=== PATIENT | female | born 1990 | race Caucasian/White ===

== ENCOUNTER 2020-03-03 07:26 | Outpatient (REF) | payer MEDICAID, SELFPAY ==
[2020-03-03 09:15] LABS: Alanine Aminotransferase 10 U/L (0-31); Albumin Level 4.5 g/dL (3.5-5.0); Alkaline Phosphatase 78 U/L (39-117); Anion Gap 15 (12-20); Aspartate Amino Transferase 12 U/L (5-31); Bilirubin Direct 0.3 mg/dL (0.0-0.5); Bilirubin Total 0.9 mg/dL (0.0-1.0); Blood Urea Nitrogen 11 mg/dL (9-16); Calcium 9.5 mg/dL (8.4-10.2); Carbon Dioxide 26 mmol/L (22-29); Chloride 107 mmol/L (96-108); Estimated Glomerular Filt Rate > 60; Glucose Random 87 mg/dL (60-115); Potassium 4.4 mmol/l (3.3-5.1); Sodium 144 mmol/L (135-145); Total Protein 7.7 g/dL (6.5-8.0)
[2020-03-03 09:34] LABS: Thyroid Stimulating Hormone 1.51 mIU/mL (0.32-4.0)
[2020-03-03 09:41] LABS: TSH reflex Free T4 1.49 mIU/mL (0.32-4.0)
[2020-03-03 09:53] LABS: Folate 11.7 ng/mL (> or = 4.0); Vitamin B12 676 pg/mL (200-900)
[2020-03-03 10:26] LABS: Acetone, serum QL Negative (Negative)
[2020-03-08 03:07] LABS: Beta-Hydroxybutyrate 0.45 mmol/L
== END 2020-03-03 07:27 | disposition home or self-care (01) ==
LOC: HO.LAB 07:26
PROVIDERS: PCP Internal Medicine; Visit Provider General Practice
DX: T52.4X1A Toxic effect of ketones, accidental (unintentional), initial encounter (principal)
CPT/HCPCS: 80048; 80076; 82009; 82010; 82550; 82607; 82746; 84443

== ENCOUNTER 2020-06-11 17:24 | Outpatient (REF) | payer MEDICAID, SELFPAY | END 2020-06-11 17:25 | disposition home or self-care (01) | LOC: HO.LAB 17:24 | PROVIDERS: PCP Internal Medicine; Visit Provider Internal Medicine | DX: Z20.822 Contact with and (suspected) exposure to COVID-19 (principal) | CPT/HCPCS: 36415; C9803; U0003 ==

== ENCOUNTER 2020-07-08 14:55 | Outpatient (REF) | payer MEDICAID, SELFPAY ==
--- NOTE | ~2020-07-08 | US_ITS ---
EXAMINATION: US PELVIS COMPLETE US PELVIS ENDOVAGINAL CLINICAL INFORMATION: Pelvic pain. Dysmenorrhea COMPARISON: None. TECHNIQUE: Transabdominal and transvaginal images of the pelvis were obtained. FINDINGS: UTERUS: Anteverted. Normal size and contour, measuring 10.0 x 3.9 x 5.1 cm (cervix to fundus x AP x transverse). Uniform, homogeneous endometrium measures 0.4 cm in width. Incidentally noted nabothian cysts in the cervix. Submaximal contribution RIGHT OVARY: Normal size and echogenicity measuring 3.2 x 2.5 x 1.9 cm. 8 mL volume. LEFT OVARY: Normal size and echogenicity measuring 2.8 x 1.8 x 2.3 cm. 6 mL volume. FREE FLUID: No pelvic free fluid. US/US pelvic complete IMPRESSION: Normal pelvic ultrasound. Thin endometrial stripe.
--- NOTE | ~2020-07-08 | US_ITS ---
EXAMINATION: US PELVIS COMPLETE US PELVIS ENDOVAGINAL CLINICAL INFORMATION: Pelvic pain. Dysmenorrhea COMPARISON: None. TECHNIQUE: Transabdominal and transvaginal images of the pelvis were obtained. FINDINGS: UTERUS: Anteverted. Normal size and contour, measuring 10.0 x 3.9 x 5.1 cm (cervix to fundus x AP x transverse). Uniform, homogeneous endometrium measures 0.4 cm in width. Incidentally noted nabothian cysts in the cervix. Submaximal contribution RIGHT OVARY: Normal size and echogenicity measuring 3.2 x 2.5 x 1.9 cm. 8 mL volume. LEFT OVARY: Normal size and echogenicity measuring 2.8 x 1.8 x 2.3 cm. 6 mL volume. FREE FLUID: No pelvic free fluid. US/US transvaginal IMPRESSION: Normal pelvic ultrasound. Thin endometrial stripe.
== END 2020-07-08 14:56 | disposition home or self-care (01) ==
LOC: HO.US 14:55
PROVIDERS: PCP Internal Medicine; Visit Provider Internal Medicine
DX: R10.2 Pelvic and perineal pain (principal); N94.6 Dysmenorrhea, unspecified
CPT/HCPCS: 76830; 76856

== ENCOUNTER 2020-07-09 16:12 | Outpatient (REF) | payer MEDICAID, SELFPAY ==
[2020-07-09 17:11] LABS: Glucose Urine UA NEG (NEG); Leukocyte Esterase Urine NEG (NEG); Nitrite Urine NEG (NEG); Specific Gravity - Urine 1.025 (1.005-1.025); Urine Blood NEG (NEG); Urine Ketones NEG (NEG); Urine Protein NEG (NEG-TRACE)
[2020-07-09 17:13] LABS: Appearance Urine CLEAR; Color Urine YELLOW
== END 2020-07-09 16:13 | disposition home or self-care (01) ==
LOC: HO.LAB 16:12
PROVIDERS: PCP Internal Medicine; Visit Provider Internal Medicine
DX: N94.6 Dysmenorrhea, unspecified (principal)
CPT/HCPCS: 81003

== ENCOUNTER 2020-07-11 10:58 | Outpatient (REF) | payer MEDICAID, SELFPAY ==
[2020-07-11 08:35] LABS: MANUAL DIFF FLAG NO
[2020-07-11 08:46] LABS: Basophils Percent Auto 0.5 % (0-2); Eosinophils Absolute Auto 0.2 X10*3/uL (0.0-0.4); Eosinophils Percent Auto 3.6 % (0-4); Hematocrit 41.8 % (37-47); Lymphocytes Absolute Auto 1.6 X10*3/uL (1.2-4.9); Lymphocytes Percent Auto 35.1 % (20-40); Mean Corpuscular HGB Conc 33.5 g/dl (31.0-35.0); Mean Corpuscular Hemoglobin 29.7 pg (27.0-33.0); Mean Corpuscular Volume 88.6 fL (80-98); Mean Platelet Volume 9.1 fL (9.4-12.3); Monocytes Absolute Auto 0.3 X10*3/uL (0.1-1.2); Monocytes Percent Auto 6.5 % (2-11); Neutrophils Absolute Auto 2.4 X10*3/uL (2.0-8.3); Neutrophils Percent Auto 54.3 % (45-73); Platelet Count 315 X10*3/uL (160-400); Red Blood Count 4.72 X10*6/uL (4.20-5.50); Red Cell Distribution Width 11.5 % (11.0-16.0); White Blood Count 4.4 X10*3/uL (4.8-10.8)
[2020-07-11 09:10] LABS: Anion Gap 14 (12-20); Blood Urea Nitrogen 16 mg/dL (9-16); Calcium 9.5 mg/dL (8.4-10.2); Carbon Dioxide 28 mmol/L (22-29); Chloride 103 mmol/L (96-108); Cholesterol 212 mg/dL; Estimated Glomerular Filt Rate > 60; Glucose Fasting 95 mg/dL (60-99); HDL Cholesterol 71 mg/dL; LDL Cholesterol Calculated 128 mg/dl; Potassium 4.3 mmol/L (3.3-5.1); Sodium 141 mmol/L (135-145); Triglycerides 68 mg/dL
[2020-07-11 09:34] LABS: HCG Quantitative < 2 mIU/mL
[2020-07-13 20:16] LABS: C. trachomatis RNA TMA NOT DETECTED (NOT DETECTED); N. gonorrhoeae RNA TMA NOT DETECTED (NOT DETECTED)
== END 2020-07-11 10:59 | disposition home or self-care (01) ==
LOC: HO.LAB 10:58
PROVIDERS: PCP Internal Medicine; Visit Provider Internal Medicine
DX: N94.6 Dysmenorrhea, unspecified (principal)
CPT/HCPCS: 36415; 80048; 80061; 84443; 84702; 85025; 87491; 87591

== ENCOUNTER 2020-09-10 09:07 | Outpatient (REF) | payer MEDICAID, SELFPAY ==
[2020-09-10 10:19] LABS: COVID-19 Test Negative (Negative); IDNOW Serial# 55D5AD1C
== END 2020-09-10 09:08 | disposition home or self-care (01) ==
LOC: HO.LAB 09:07
PROVIDERS: Visit Provider Internal Medicine
DX: Z20.822 Contact with and (suspected) exposure to COVID-19 (principal)
CPT/HCPCS: 36415; 87635; C9803

== ENCOUNTER 2020-11-25 07:28 | Outpatient (REF) | payer MEDICAID, SELFPAY | END 2020-11-25 07:29 | disposition home or self-care (01) | LOC: HO.LAB 07:28 | PROVIDERS: PCP Internal Medicine; Visit Provider Internal Medicine | DX: Z20.822 Contact with and (suspected) exposure to COVID-19 (principal) | CPT/HCPCS: C9803; U0003; U0005 ==

== ENCOUNTER 2021-08-23 16:53 | Outpatient (REF) | payer MEDICAID, SELFPAY ==
--- NOTE | ~2021-08-23 | XR_ITS ---
EXAMINATION: XR KNEE, RIGHT CLINICAL INFORMATION: Knee pain COMPARISON: None TECHNIQUE: Two views of the right knee. FINDINGS: Bones and soft tissues are normal. No fracture. Small suprapatellar joint fluid.. Alignment is anatomic. Joint spaces are well maintained. No abnormal soft tissue calcification. XR/XR knee RT 2V IMPRESSION: No acute fracture
== END 2021-08-23 16:54 | disposition home or self-care (01) ==
LOC: HO.XRAY 16:53
PROVIDERS: Absent Provider Internal Medicine; PCP Internal Medicine; Visit Provider Internal Medicine Geriatric Medicine
DX: M25.561 Pain in right knee (principal)
CPT/HCPCS: 73560

== ENCOUNTER 2021-08-28 15:34 | Emergency (ER) | payer MEDICAID, SELFPAY ==
[2021-08-28 16:36] VITALS: BP 127/69; PULSE 82; RESP 18; TEMP 36.3; O2SAT 100; BMI 37.2
--- NOTE | 2021-08-28 17:03 | ED_ITS ---
HPI - Extremity Problem General Chief complaint: Extremity Problem Stated complaint: ankel pain Time Seen by Provider: 08/28/21 16:54 Source: patient Mode of arrival: ambulatory History of Present Illness HPI Narrative: 31-year-old female with a past medical history of asthma presenting to the ED complaining of right knee pain x 8 days. Admits was evaluated at [facility] on Monday, had x-rays that were unremarkable given Celecoxib without relief. States this morning when was getting out of the shower and drying herself off felt acute worsening pain to right knee. denies injury, trauma, fall, twisting, weakness. Reports difficulty/inability to ambulate secondary to pain and mild paresthesias MD Complaint: extremity pain and joint pain Onset (ago): week(s) Pain Consistency: constant Related Data Previous Rx's Medication Instructions Recorded acetaminophen 500 mg tablet 500 mg PO Q6H PRN #20 tab 08/28/21 (Tylenol Extra Strength) diclofenac sodium 3 % topical gel 1 appl TOPICAL BID PRN #100 g 08/28/21 Allergies Allergy/AdvReac Type Severity Reaction Status Date / Time lactose Allergy Diarrhea Verified 08/28/21 16:40 Review of Systems Review of Systems: Constitutional: No Fever, No Chills ENT/Mouth: No Ear Pain, No Nasal Congestion, No sore throat, No Rhinorrhea, No Swallowing Difficulty Cardiovascular: No Chest Pain, No SOB Respiratory: No Cough, No Sputum, Gastrointestinal: No Nausea, No Vomiting, No Diarrhea, No Constipation, No Abdominal pain Genitourinary:, No Dysuria, No Urinary Frequency, No Hematuria, No Urinary Incontinence, No Flank Pain Musculoskeletal: +joint pain, No Myalgias, No Joint Swelling Skin: No Skin Lesions, No rash Neuro: No Weakness, No Numbness, + Paresthesias Yes all other systems are reviewed and are negative [facility] Past Medical History Attestation statement: The following information was validated with the patient. Medical History Asthma Social History Social History Advance Directives: No Advance Directives Information Provided: No Physical Exam Vital Signs: Vital Signs: Last Vital Signs Temp 97.4 F 08/28/21 16:36 Pulse 82 08/28/21 16:36 Resp 18 08/28/21 16:36 BP 127/69 08/28/21 16:36 Pulse Ox 100 08/28/21 16:36 BMI result Body Mass Index 37.2 Const: General: cooperative, healthy appearing, no acute distress, well developed, alert and awake Orientation/consciousness: patient oriented x3 Limitations: no limitations HEENT: Head: Yes normal to inspection and Yes atraumatic Ears: hearing grossly normal bilaterally General nose exam: Normal external nose present Face and sinus: Yes normal facial exam Eyes: General: appearance normal, both eyes and all related structures EOM: EOMs intact bilaterally Neck: Neck: Yes normal visual inspection and Yes no meningeal signs Resp: Effort & Inspection: normal respiratory effort and no respiratory distress Auscultation: clear to auscultation bilaterally Cardio: Rate: regular rate Heart sounds: S1 normal heart sound present and S2 normal heart sound present Peripheral pulses: dorsalis pedis present Skin: Rashes: no rashes Wounds: no wounds Neuro: General: patient oriented x3, tone normal and no meningeal signs Gait exam (Neuro): Normal gait present Extrem: Other: Right knee without appreciable deformity. Tender to palpation greater to medial inferior aspect with limited flexion secondary to pain. Neurovascular intact distally. Hip/ankle/foot and toes nontender. No appreciable laxity General: Yes normal to inspection Course Course Course Narrative: Knee x-rays from 08/23 without fracture, small suprapatellar joint effusion >> no need for repeat x-rays at this time. Missael wrap applied for comfort and stability. Will refer patient to orthopedics MDM - Extremity (Nontraumatic) MDM Narrative Medical decision making narrative: 31-year-old female with a past medical history of asthma presenting to the ED complaining of right knee pain x 8 days. On exam vital signs stable, NAD/nontoxic, physical exam as above. X-rays reviewed from 08/23. No need for repeat x-rays at this time. Likely meniscal vs tendon or ligamental injury. Concern for fracture Plan: Symptomatic treatment Medical Records Attestation: I reviewed the patient's medical records. Lab Data Attestation: I reviewed the patient's lab results. Discharge Plan Discharge Clinical Impression: Acute knee pain Qualifiers: Laterality: right Qualified Code(s): M25.561 - Pain in right knee Patient Disposition: Home, Self-Care Instructions: Knee Pain (ED), Arthralgia (ED) Additional Instructions: Ice and elevate her knee. Wear Missael wrap at home for comfort and stability Continue taking previously prescribed anti-inflammatory medication. In addition diclofenac as a topical anti-inflammatory cream, apply to her knee. you should also take Tylenol. Please follow-up with Orthopedics, call next week to make an appointment Hielo y eleva patel rodilla. Use la envoltura Missael en casa para mayor comodidad y estabilidad. Contin?e tomando la medicaci?n antiinflamatoria prescrita previamente. Adem?s de diclofenaco mercy crema antiinflamatoria t?pica, apl?quelo en la rodilla. tambi?n debe raven Tylenol. Km un seguimiento con ortopedia, llame la pr?xima semana para hacer lester dayday Prescriptions: New acetaminophen [Tylenol Extra Strength] 500 mg tablet 500 mg PO Q6H PRN (Reason: pain or fever) Qty: 20 0RF diclofenac sodium 3 % gel 1 appl topical BID PRN (Reason: pain (scale score 1-3)) Qty: 100 0RF Referrals: Natalia Williamson MD [Primary Care Provider] - 3 days Nella Pearce PA-C [Physician Bread Room Hand] - 1 week Print Language: Chilean
[2021-08-28] MEDS: oxyCODONE HCl Immed Release 5 MG TABLET PO (17:30)
== END 2021-08-28 17:38 | disposition home or self-care (01) ==
PROVIDERS: Emergency Provider Emergency Medicine Emergency Medical Services; PCP Internal Medicine
DX: M25.561 Pain in right knee (principal); J45.909 Unspecified asthma, uncomplicated
CPT/HCPCS: 99283

== ENCOUNTER 2023-04-01 08:35 | Outpatient (REF) | payer MEDICAID, SELFPAY ==
[2023-04-01 09:42] LABS: Anion Gap 13 (12-20); Blood Urea Nitrogen 8 mg/dL (9-16); Calcium 9.9 mg/dL (8.4-10.2); Carbon Dioxide 25 mmol/L (22-29); Chloride 106 mmol/L (96-108); Estimated Glomerular Filt Rate > 60; Glucose Random 91 mg/dL (60-115); Potassium 3.8 mmol/L (3.3-5.1); Sodium 140 mmol/L (135-145)
[2023-04-01 09:44] LABS: Cholesterol 195 mg/dL (<200); HDL Cholesterol 50 mg/dL (>40); LDL Cholesterol Calculated 131 mg/dL (<100); Triglycerides 74 mg/dL (<150)
[2023-04-01 10:02] LABS: HIV AB/AG Nonreactive (Nonreactive); HIV Num 1 0.06 S/CO (0.00-0.99)
[2023-04-01 10:07] LABS: Reflex LDLD? No
[2023-04-03 03:31] LABS: Syphilis Screen Nonreactive (Nonreactive)
== END 2023-04-01 08:36 | disposition home or self-care (01) ==
LOC: HO.LAB 08:35
PROVIDERS: PCP Internal Medicine; Visit Provider Internal Medicine
DX: Z00.00 Encounter for general adult medical examination without abnormal findings (principal); Z11.4 Encounter for screening for human immunodeficiency virus [HIV]; I10 Essential (primary) hypertension
CPT/HCPCS: 36415; 80048; 80061; 86780; 87389

== ENCOUNTER 2023-04-03 11:52 | Outpatient (REF) | payer MEDICAID, SELFPAY ==
[2023-04-05 21:38] LABS: TS Negative Control Passed; TS Panel A 1; TS Panel B 0; TS Positive Control Passed; TSpotTB Negative (Negative)
== END 2023-04-03 11:53 | disposition home or self-care (01) ==
LOC: HO.HHCL 11:52
PROVIDERS: Visit Provider Internal Medicine
DX: Z00.00 Encounter for general adult medical examination without abnormal findings (principal)
CPT/HCPCS: 36415; 86481

== ENCOUNTER → 2023-05-23 11:45 | Outpatient (BNV) | payer MEDICAID, SELFPAY | PROVIDERS: PCP Internal Medicine; Visit Provider Radiology Diagnostic Radiology | DX: G93.2 Benign intracranial hypertension (principal) | CPT/HCPCS: 62328 ==

== ENCOUNTER → 2023-05-23 14:23 | Day surgery (SDC) | payer MEDICAID, SELFPAY ==
--- NOTE | ~2023-05-23 | FL_ITS ---
FLUOROSCOPIC GUIDED LUMBAR PUNCTURE INDICATION: Idiopathic intracranial hypertension COMPARISON: No prior. Correlation made with MRI brain without and with contrast 03/28/2019. Risks and benefits and possible complications were discussed with the patient and the consent form was signed. Patient was placed prone on the fluoroscopy table. The back was prepped and draped in routine sterile fashion. Betadine was used as a skin antiseptic. Utilizing fluoroscopic guidance, the L2-3 level was accessed with a 22 gauge quinkie spinal needle and clear CSF fluid obtained. Opening pressure was 23 cm H2O. 9.5 cc of fluid was sent for analysis. The needle was removed without immediate complications. Of note, on the prior MRI, there is enlargement of Meckel's caves bilaterally, increased CSF within the optic nerve sheath heads, small transverse sinuses bilaterally, and mild diaphragma sella incompetence. Findings are all consistent with idiopathic intracranial hypertension. Total fluoroscopy time: 0.3 min FL/FL guided lumbar puncture LP IMPRESSION: 1. Successful fluoroscopic lumbar puncture 2. In retrospective review of the 03/28/2019 MRI, there are findings consistent with a diagnosis of idiopathic intracranial hypertension. This procedure was performed by Evelio Farfan PA-C and supervised by Dr. Preston.
[2023-05-23 10:07] VITALS: BMI 45.3
[2023-05-23 10:29] LABS: UPreg QC Valid YES; Urine Pregnancy NEGATIVE (NEGATIVE)
[2023-05-23 10:56] LABS: MANUAL DIFF FLAG NO
[2023-05-23 11:00] LABS: Basophils Percent Auto 0.7 % (0-2); Eosinophils Absolute Auto 0.2 X10*3/uL (0.0-0.4); Eosinophils Percent Auto 2.7 % (0-4); Hematocrit 41.1 % (37.0-47.0); Hemoglobin 13.8 g/dl (12.0-16.0); Imm Gran Abs Auto 0.01 X10*3/uL (0.00-0.03); Imm Gran Pct Auto 0.2 % (0.0-0.4); Lymphocytes Absolute Auto 1.1 X10*3/uL (1.2-4.9); Lymphocytes Percent Auto 18.3 % (20-40); Mean Corpuscular HGB Conc 33.6 g/dl (31.0-35.0); Mean Corpuscular Hemoglobin 29.8 pg (27.0-33.0); Mean Corpuscular Volume 88.8 fL (80.0-98.0); Mean Platelet Volume 10.1 fL (9.4-12.3); Monocytes Absolute Auto 0.4 X10*3/uL (0.1-1.2); Monocytes Percent Auto 5.9 % (2-11); Neutrophils Absolute Auto 4.3 x10*3/uL (2.0-8.3); Neutrophils Percent Auto 72.2 % (45-73); Platelet Count 289 X10*3/uL (160-400); Red Blood Count 4.63 X10*6/uL (4.20-5.50); Red Cell Distribution Width 12.5 % (11.0-16.0); White Blood Count 5.9 X10*3/uL (4.8-10.8)
[2023-05-23 11:07] LABS: INTERNATIONAL NORM RATIO 0.9 (0.9-1.1); Prothrombin Time 11.2 SEC (11.1-13.3)
[2023-05-23 12:45] VITALS: BP 116/73; PULSE 74; RESP 16; TEMP 36.2; O2SAT 100
[2023-05-23 13:15] VITALS: BP 116/63; PULSE 69; RESP 16; O2SAT 100
[2023-05-23 13:30] VITALS: BP 120/65; PULSE 70; RESP 17; O2SAT 100
[2023-05-23 14:00] VITALS: BP 115/73; PULSE 71; RESP 14; TEMP 36.6; O2SAT 100
== END ==
PROVIDERS: Physician Assistant Surgical; PCP Orthopaedic Surgery; Visit Provider Psychiatry & Neurology Neurology
PROC: 009U3ZZ Drainage of Spinal Canal, Percutaneous Approach (ICD-10-PCS; CPT 62270; principal; 2023-05-23 11:00)
DX: G93.2 Benign intracranial hypertension (principal); H47.10 Unspecified papilledema; G43.909 Migraine, unspecified, not intractable, without status migrainosus; E66.9 Obesity, unspecified; Z68.41 Body mass index [BMI] 40.0-44.9, adult; J45.909 Unspecified asthma, uncomplicated; Z79.51 Long term (current) use of inhaled steroids; Z79.899 Other long term (current) drug therapy; Z79.1 Long term (current) use of non-steroidal anti-inflammatories (NSAID)
CPT/HCPCS: 36415; 62328; 81025; 82945; 84157; 85025; 85610; 85730; 87015; 87070; 87205; 89051

== ENCOUNTER 2023-12-05 07:24 | Outpatient (REF) | payer MEDICAID, SELFPAY ==
[2023-12-05 08:54] LABS: Anion Gap 15 (12-20); Blood Urea Nitrogen 13 mg/dL (9-16); Carbon Dioxide 22 mmol/L (22-29); Chloride 111 mmol/L (96-108); Estimated Glomerular Filt Rate > 60; Glucose Random 82 mg/dL (60-115); Potassium 3.8 mmol/L (3.3-5.1); Sodium 144 mmol/L (135-145)
[2023-12-05 09:12] LABS: TSH reflex Free T4 1.13 uIU/mL (0.32-4.0); Vitamin D 25-OH Total 18.3 ng/mL (>30)
== END 2023-12-05 07:25 | disposition home or self-care (01) ==
LOC: HO.LAB 07:24
PROVIDERS: PCP Internal Medicine; Visit Provider Internal Medicine
DX: I10 Essential (primary) hypertension (principal)
CPT/HCPCS: 36415; 80048; 82306; 84443

== ENCOUNTER 2024-04-04 09:39 | Outpatient (REF) | payer MEDICAID, SELFPAY ==
[2024-04-04 11:35] LABS: Estimated Average Glucose 94 mg/dL; Hemoglobin A1C 103.3348 umol/L; Hemoglobin A1c % 4.9 % (<6.0); Total Hemoglobin (HGBA1C) 3456.6328 umol/L
[2024-04-04 11:46] LABS: Anion Gap 11 (12-20); Blood Urea Nitrogen 13 mg/dL (9-16); Calcium 9.7 mg/dL (8.4-10.2); Carbon Dioxide 25 mmol/L (22-29); Chloride 107 mmol/L (96-108); Cholesterol 193 mg/dL (<200); Estimated Glomerular Filt Rate > 60; Glucose Random 87 mg/dL (60-115); HDL Cholesterol 66 mg/dL (>40); LDL Cholesterol Calculated 112 mg/dL (<100); Potassium 3.8 mmol/L (3.3-5.1); Sodium 139 mmol/L (135-145); Triglycerides 75 mg/dL (<150)
[2024-04-04 11:56] LABS: Syphilis Screen Nonreactive (Nonreactive)
[2024-04-04 11:57] LABS: HIV AB/AG Nonreactive (Nonreactive); HIV Num 1 0.05 S/CO (0.00-0.99)
[2024-04-04 12:03] LABS: Vitamin D 25-OH Total 22.3 ng/mL (>30)
[2024-04-04 12:25] LABS: Reflex LDLD? No
[2024-04-04 18:14] LABS: CT PCR NOT DETECTED (Not Detect.); NG PCR NOT DETECTED (Not Detect.)
[2024-04-04 18:19] LABS: Bacterial Vaginosis PCR NEGATIVE (Negative); Candida Group PCR NOT DETECTED (Not Detect); Candida glab krusei PCR NOT DETECTED (Not Detect); Trichomonas vaginalis PCR NOT DETECTED (Not Detect)
[2024-04-07 07:43] LABS: TS Negative Control Passed; TS Panel A 1; TS Panel B 2; TS Positive Control Passed; TSpotTB Negative (Negative)
== END 2024-04-04 09:40 | disposition home or self-care (01) ==
LOC: HO.HHCL 09:39
PROVIDERS: Visit Provider Internal Medicine
DX: Z00.00 Encounter for general adult medical examination without abnormal findings (principal); E66.812 Obesity, class 2; E66.01 Morbid (severe) obesity due to excess calories; Z68.37 Body mass index [BMI] 37.0-37.9, adult; R10.2 Pelvic and perineal pain
CPT/HCPCS: 0352U; 80048; 80061; 82306; 83036; 86481; 86780; 87389; 87491; 87591

== ENCOUNTER 2024-04-16 14:44 | Outpatient (REF) | payer MEDICAID, SELFPAY | END 2024-04-16 14:45 | disposition home or self-care (01) | LOC: HO.US 14:44 | PROVIDERS: PCP Internal Medicine; Visit Provider Internal Medicine | DX: R10.2 Pelvic and perineal pain (principal) | CPT/HCPCS: 76830; 76856 ==

== ENCOUNTER 2024-06-10 15:46 | Outpatient (REF) | payer MEDICAID, SELFPAY ==
--- NOTE | ~2024-06-10 | US_ITS ---
EXAMINATION: US PELVIS TRANSABDOMINAL AND TRANSVAGINAL HISTORY: fu complex ovarian cyst on pelvic us 04/16/24 COMPARISON: Comparison is made with the prior examination dated 04/16/2024. TECHNIQUE: Transabdominal and endovaginal real-time 2D rodriguez-scale ultrasound was performed. Color Doppler was also performed. FINDINGS: Uterus: The uterus is normal in size, measuring 11.0 x 4.2 x 5.8 cm. Myometrium has a normal echotexture. No fibroids are identified. Endometrium: The endometrial stripe measures 7 mm in thickness. There is a small amount of fluid in the endometrial canal. Right ovary: The right ovary measures 2.9 x 1.9 x 2.3 cm. The right ovary is normal in size and echotexture. The previously seen complex cyst has resolved. Left ovary: The left ovary measures 3.6 x 2.4 x 2.6 cm. The left ovary is normal in size and echotexture. Color Doppler analysis of the bilateral ovarian arteries and veins are normal. Pelvic fluid: none. US/US pelvic and transvaginal IMPRESSION: Small amount of fluid in the endometrial canal. Otherwise unremarkable pelvic ultrasound. The previously seen complex right ovarian cyst has resolved. Electronically signed by: Cali Bailey MD 06/11/2024 07:04 AM [facility]
--- OUTSIDE RECORDS SUMMARY | 2024-06-10 19:38 | XMS_ITS | Encounter Summary ---
Author Organization [employer] Address [address] [place] [address] Care Team Providers Care Construction Pit Worker Name Role Phone Barb Tubbs Primary Care Provider [phone] Barb Tubbs Primary Care Provider [phone] Natalia Williamson MD Primary Care Provider + Encounter Details Date Type Department Care Team (Latest Contact Info) Description 07/08/2021 Abstract [facility] CONVERSIONS Dental, Provider, DDS Social History Tobacco Use Types Packs/Day Years Used Date Smoking Tobacco: Never Assessed Comments Unknown Sex and Gender Information Value Date Recorded Sex Assigned at Female 03/14/2022 10:33 AM EDT Legal Sex Female 10:33 AM EDT Gender Identity Female 03/14/2022 10:33 AM EDT Sexual Orientation Straight 03/14/2022 10 :33 AM EDT documented as of this encounter Plan of Treatment Upcoming Encounters Date Type Department Care Team ( st Contact Info) Description 08/01/2024 11:30 AM EDT Office Visit [facility] MEDICINE [address] [place], [place] [phone] Natalia Williamson MD [address] [place], [place] [phone] 09/09/2024 3:00 PM EDT Office Visit [facility] OPTOMETRY [address] [place], [place] [phone] Melita Pacheco OD [address] [place] [address] 11/20/2024 3:00 PM EDT Office Visit [facility] ADULT DENTAL [address] [place] [address] America García documented as of this encounter Visit Diagnoses Not on filedocumented in this encounter Care Teams Construction Pit Worker Relationship Specialty Start Date End Date Babr Tubbs FNP [address] [place] [address] PCP - General Family Medicine 07/15/22 07/17/22 Barb Tubbs FNP [address] [place] [address] PCP - General Family Medicine 07/18/22 02/26/23 Natalia Williamson MD [address] [place] [address] PCP - General Internal Medicine 02/27/23 documented as of this encounter
--- OUTSIDE RECORDS SUMMARY | 2024-06-10 19:38 | XMS_ITS | Encounter Summary ---
Author Organization [employer] Address [address] [place] [address] Care Team Providers Care Home Health Occupational Therapist Name Role Phone Natalia Williamson MD Primary Care Provider + Reason for Visit * Reason Onset Date Comments Med Refill 05/19/2024 Encounter Details Date Type Department Care Team (Late st Contact Info) Description 05/19/[address] [facility] MEDICINE [address] [place], [place] [phone] Natalia Williamson MD [address] [place], [place] [phone] Social History Tobacco Use Types Packs/Day Years Used Date Smoking Tobacco: Never Passive Smoke Exposure: Never Smokeless Tobacco: Never Alcohol Use Standard Drinks/Week Comments Never 0 (1 standard drink = 0.6 oz pur e alcohol) Housing Stability Answer Date Recorded What is your housing situation today? I have romy carlson 03/22/[address] you li ve. Do you have problems with any of the following? None of the above 03/22/2023 Food Insecurity Answer Date Recorded Within the past 12 months, y ou worried that your food would run out before you got money to buy more: Never True 03/22/2023 Within the past 12 months,th e food you bought just didn't last and you didn't have enough money to get more: Never True 12/2022 Transportation Answer Date Recorded In the past 12 months, has l ack of transportation kept you from medical appts, meetings, work or from getting things needed for daily living? No 03/22/2023 Utilities Answer Date Recorded In the past 12 months, has t he electric, gas, oil or water company threatened to shut off services in your home? No 03/22/2023 Depression Answer Date Recorded Patient Health Questionnaire-2 Score 0 03/31/2023 Internet Access Answer Date Recorded Internet Access Q1 Yes 01/15/2024 Internet Access Q2 Not on file 01/15/2024 Comments No Sex and Gender Information Value Date Recorded Sex Assigned at Female 03/14/2022 10:33 AM EDT Legal Sex Female 10:33 AM EDT Gender Identity Female 03/14/2022 10:33 AM EDT Sexual Orientation Straight 03/14/2022 10 :33 AM EDT documented as of this encounter Plan of Treatment Upcoming Encounters Date Type Department Care Team (Late st Contact Info) Description 08/01/2024 11:30 AM EDT Office Visit [facility] MEDICINE [address] [place] [address] Natalia Williamson MD [address] [place] [address] 09/09/2024 3:00 PM EDT Office Visit [facility] OPTOMETRY [address] [place] [address] Junior, Melita, OD [address] [place] [address] 11/20/2024 3:00 PM EDT Office Visit [facility] ADULT DENTAL [address] [place] [address] America García documented as of this encounter Visit Diagnoses Not on filedocumented in this encounter Care Teams Home Health Occupational Therapist Relationship Specialty Start Date End Date Natalia Williamson MD [address] [place] [address] PCP - General Internal Medicine 02/27/23 documented as of this encounter
--- OUTSIDE RECORDS SUMMARY | 2024-06-10 19:38 | XMS_ITS | Encounter Summary ---
Author Organization [employer] Address [address] [place] [address] Care Team Providers Care Principal Data Architect Name Role Phone Barb Tubbs Primary Care Provider [phone] Barb Tubbs Primary Care Provider [phone] Natalia Williamson MD Primary Care Provider + Encounter Details Date Type Department Care Team (Latest Contact Info) Description 05/27/2020 Abstract [facility] CONVERSIONS Dental, Provider, DDS Social History Tobacco [...] Description 08/01/2024 11:30 AM EDT Office Visit [facility] MEDICINE [address] [place], [place] [phone] Natalia Williamson MD [address] [place], [place] [phone] 09/09/2024 3:00 PM EDT Office Visit [facility] OPTOMETRY [address] [place], [place] [phone] Melita Pacheco OD [address] [place] [address] 11/20/2024 3:00 PM EDT Office Visit [facility] ADULT DENTAL [address] [place] [address] America García documented as of this encounter Visit Diagnoses Not on filedocumented in this encounter Care Teams Principal Data Architect Relationship Specialty Start Date End Date Babr Tubbs FNP [address] [place] [address] PCP - General Family Medicine 07/15/22 07/17/22 Barb Tubbs FNP [address] [place] [address] PCP - General Family Medicine 07/18/22 02/26/23 Natalia Williamson MD [address] [place] [address] PCP - General Internal Medicine 02/27/23 documented as of this encounter
--- OUTSIDE RECORDS SUMMARY | 2024-06-10 19:38 | XMS_ITS | Encounter Summary ---
Author Organization [employer] Address [address] [place] [address] Care Team Providers Care Title Abstractor Name Role Phone Natalia Williamson MD Primary Care Provider + Reason for Visit * Reason Comments Med Change Request Encounter Details Date Type Department Care Team ([facility] st Contact Info) Description 04/17/2024 Refill [facility] MEDICINE [address] [place], [place] [phone] Natalia Williamson MD [address] [place], [place] [phone] Social History Tobacco Use Types Packs/Day Years [...] 11:30 AM EDT Office Visit [facility] MEDICINE [address] [place] [address] Natalia Williamson MD [address] [place] [address] 09/09/2024 3:00 PM EDT Office Visit [facility] OPTOMETRY [address] [place] [address] Junior, Melita, OD [address] [place] [address] 11/20/2024 3:00 PM EDT Office Visit [facility] ADULT DENTAL [address] [place] [address] America García documented as of this encounter Visit Diagnoses Not on filedocumented in this encounter Care Teams Title Abstractor Relationship Specialty Start Date End Date Natalia Williamson MD [address] [place] [address] PCP - General Internal Medicine 02/27/23 documented as of this encounter
--- OUTSIDE RECORDS SUMMARY | 2024-06-10 19:38 | XMS_ITS | Encounter Summary ---
Author Organization [employer] Address [address] [place] [address] Care Team Providers Care Scale Adjuster Name Role Phone Natalia Williamson MD Primary Care Provider + Reason for Visit * Reason Comments Med Change Request Encounter Details Date Type Department Care Team ([facility] st Contact Info) Description 06/04/2024 Refill [facility] MEDICINE [address] [place], [place] [phone] Natalia Williamson MD [address] [place], [place] [phone] Social History Tobacco Use Types Packs/Day Years [...] Description 08/01/2024 11:30 AM EDT Office Visit [facility] MEDICINE [address] [place] [address] Natalia Williamson MD [address] [place] [address] 09/09/2024 3:00 PM EDT Office Visit [facility] OPTOMETRY [address] [place] [address] Junior, Melita, OD [address] [place] [address] 11/20/2024 3:00 PM EDT Office Visit [facility] ADULT DENTAL [address] [place] [address] America García documented as of this encounter Visit Diagnoses Not on filedocumented in this encounter Care Teams Scale Adjuster Relationship Specialty Start Date End Date Natalia Williamson MD [address] [place] [address] PCP - General Internal Medicine 02/27/23 documented as of this encounter
--- OUTSIDE RECORDS SUMMARY | 2024-06-10 19:38 | XMS_ITS | Encounter Summary ---
Author Organization [employer] Address [address] [place] [address] Care Team Providers Care De Alcoholizer Name Role Phone Natalia Williamson MD Primary Care Provider + Reason for Visit * Reason Onset Date Comments Results 06/04/2024 Encounter Details Date Type Department Care Team ([facility] st Contact Info) Description 06/04/2024 Telephone [facility] MEDICINE [address] [place], [place] [phone] Chloé Garcia, RN [address] [place] [address] Results Social History Tobacco Use Types Packs/Day Years [...] AM EDT documented as of this encounter Miscellaneous Notes * Telephone Encounter - Chloé Garcia RN - 06/04/2024 3:49 PM EST Noted. Patient informed of results during TV with provider today. Patient to f/u PRN. ----- Message from Natalia Williamson MD sent at 06/03/2024 1:30 PM EST ----- Pelvic ultrasound on 04/16/2024 showed a hemorrhagic ovarian cyst, she needs further follow-up by [facility] and repeat a pelvic ultrasound around end of May. Please call patient and tell her that I willrefer her to [facility] for evaluation of the ovarian cyst that probably came from ovulation in the late inside, I will order repeated US and follow-up with her in her upcoming appointment with me. documented in this encounter Plan of Treatment Upcoming Encounters Date Type Department Care Team (Late st Contact Info) Description 08/01/2024 11:30 AM EDT Office Visit [facility] MEDICINE [address] [place], [place] [phone] Natalia Williamson MD [address] [place], [place] [phone] 09/09/2024 3:00 PM EDT Office Visit [facility] OPTOMETRY [address] [place], [place] [phone] Junior Melita, OD [address] [place] [address] 11/20/2024 3:00 PM EDT Office Visit [facility] ADULT DENTAL [address] [place], [place] [phone] America García documented as of this encounter Visit Diagnoses Not on filedocumented in this encounter Care Teams De Alcoholizer Relationship Specialty Start Date End Date Natalia Williamson MD [address] [place] [address] PCP - General Internal Medicine 02/27/23 documented as of this encounter
--- OUTSIDE RECORDS SUMMARY | 2024-06-10 19:38 | XMS_ITS | Encounter Summary ---
Author Organization [employer] Address [address] [place] [address] Care Team Providers Care Doll Maker Name Role Phone Barb Tubbs Primary Care Provider [phone] Barb Tubbs Primary Care Provider [phone] Natalia Williamson MD Primary Care Provider + Encounter Details Date Type Department Care Team (Latest Contact Info) Description 07/04/2018 Abstract [facility] CONVERSIONS Dental, Provider, DDS Social [...] 11:30 AM EDT Office Visit [facility] MEDICINE [address] [place], [place] [phone] Natalia Williamson MD [address] [place], [place] [phone] 09/09/2024 3:00 PM EDT Office Visit [facility] OPTOMETRY [address] [place], [place] [phone] Melita Pacheco OD [address] [place] [address] 11/20/2024 3:00 PM EDT Office Visit [facility] ADULT DENTAL [address] [place] [address] America García documented as of this encounter Visit Diagnoses Not on filedocumented in this encounter Care Teams Doll Maker Relationship Specialty Start Date End Date Barb Tubbs FNP [address] [place] [address] PCP - General Family Medicine 07/15/22 07/17/22 Barb Tubbs FNP [address] [place] [address] PCP - General Family Medicine 07/18/22 02/26/23 Natalia Williamson MD [address] [place] [address] PCP - General Internal Medicine 02/27/23 documented as of this encounter
--- OUTSIDE RECORDS SUMMARY | 2024-06-10 19:38 | XMS_ITS | Encounter Summary ---
Author Organization [employer] Address [address] [place] [address] Care Team Providers Care Associate Professor Of Musicology Name Role Phone Natalia Williamson MD Primary Care Provider + Reason for Visit * Reason Onset Date Comments Med Refill 05/19/2024 Encounter Details Date Type Department Care Team (Late st Contact Info) Description 05/19/2024 Refill [facility] MEDICINE [address] [place], [place] [phone] Natalia Williamson MD [address] [place], [place] [phone] Back muscle spasm Social History Tobacco Use Types Packs/Day Years [...] Description 08/01/2024 11:30 AM EDT Office Visit [facility] MEDICINE [address] [place] [address] Natalia Williamson MD [address] [place] [address] 09/09/2024 3:00 PM EDT Office Visit [facility] OPTOMETRY [address] [place] [address] Junior, Melita, OD [address] [place] [address] 11/20/2024 3:00 PM EDT Office Visit [facility] ADULT DENTAL [address] [place] [address] America García documented as of this encounter Visit Diagnoses Diagnosis Back muscle spasm Other symptoms referable to back documented in this encounter Care Teams Associate Professor Of Musicology Relationship Specialty Start Date End Date Natalia Williamson MD [address] [place] [address] PCP - General Internal Medicine 02/27/23 documented as of this encounter
--- OUTSIDE RECORDS SUMMARY | 2024-06-10 19:38 | XMS_ITS | Encounter Summary ---
Author Organization [employer] Address [address] [facility] [address] [facility] [address] [place] [address] Care Team Providers Care Quality Assurance Monitor Chassis Name Role Phone Natalia Williamson MD Primary Care Provider + Reason for Visit * Reason Comments Med Refill Encounter Details Date Type Department Care Team ([facility] st Contact Info) Description 05/19/2024 Refill [facility] MEDICINE [address] [place], [place] [phone] Natalia Williamson MD [address] [place], [place] [phone] Back muscle spasm Social History Tobacco Use [...] Description 08/01/2024 11:30 AM EDT Office Visit [facility] MEDICINE [address] [place] [address] Natalia Williamson MD [address] [place] [address] 09/09/2024 3:00 PM EDT Office Visit [facility] OPTOMETRY [address] [place] [address] Junior, Melita, OD [address] [place] [address] 11/20/2024 3:00 PM EDT Office Visit [facility] ADULT DENTAL [address] [place] [address] America García documented as of this encounter Visit Diagnoses Diagnosis Back muscle spasm Other symptoms referable to back documented in this encounter Care Teams Quality Assurance Monitor Chassis Relationship Specialty Start Date End Date Natalia Williamson MD [address] [place] [address] PCP - General Internal Medicine 02/27/23 documented as of this encounter
--- OUTSIDE RECORDS SUMMARY | 2024-06-10 19:38 | XMS_ITS | Encounter Summary ---
Author Organization [employer] Address [address] [facility] [address] [place] [address] Care Team Providers Care Tool Clerk Name Role Phone Natalia Williamson MD Primary Care Provider + Reason for Visit * Reason Comments Routine Cleaning Dental Exam Encounter Details Date Type Department Care Team (Late st Contact Info) Description 05/17/2024 3:00 PM EST Office Visit [facility] ADULT DENTAL [address] [place] [address] America García Dental calculus (Primary Dx); Dental plaque Social History Tobacco Use Types Packs/Day Years [...] AM EDT documented as of this encounter Last Filed Vital Signs Vital Sign Reading Time Taken Comments Blood Pressure 152/84 05/17/2024 3:25 PM EST Pulse - - Temperature - - Respiratory Rate - - Oxygen Saturation - - Inhaled Oxygen Concentration - - Weight - - Height - - Body Mass Index - - documented in this encounter Progress Notes * America García - 05/17/2024 3:00 PM EST Patient ID: Denisha Majano is a 34 y.o. female. Time Out: Timeout Date: 05/17/24, Timeout Time: 1523 (Dental Propjhy Adult) Location: [facility] Tooth: Maxilla and Mandible Procedure: Exam, X-rays, and Prophylaxis Verified the above with patient, teaching assistant, and provider. Confirmed via patient's chart, intraorally and by radiographs. Pilot Supervisor: not applicable Medical Hx: Vitals: Blood pressure (!) 152/84. Medications, Med Hx reviewed with patient and updated in chart. Treatment Provided Dental procedures in this visit D1110 - PROPHYLAXIS - ADULT (Completed) Service provider: America García [place] provider: Steven Jules DMD D1330 - ORAL HYGIENE INSTRUCTIONS (Completed) Service provider: America García [place] provider: Steven Jules DMD D0274 - BITEWINGS - 4 RADIOGRAPHIC IMAGES (Completed) Service provider: America Ramires provider: Steven Jules DMD D9450 - CASE PRESENTATION, DETAILED AND EXTENSIVE TREATMENT PLANNING (Completed) Service provider: America García [place] provider: Steven Jules DMD Instruments Used: Ultrasonic Scalers and Prophy angle Fluoride: N/A Oral Cancer Screening: No lesions Head/Neck Exam: No Lesions Calculus: Moderate and Generalized Plaque: Light and Generalized Stain: None Bleeding: Light and Generalized Gingiva: Perio Charting Completed and Inflamed OH: Fair Perio Chart: Completed Oral hygiene instructions provided to patient including brushing technique and flossing. Recommendations: [place] two times daily, modified steele technique, Floss daily, Electric toothbrush, Soft bristle toothbrush, [place] Tongue, Anti-sensitivity toothpaste Recall Frequency: 6 mo NV: 6mrc Hygienist: America García RDH Cosigned by Steven Jules DMD at 05/20/2024 8:19 AM EST * Steven Jules DMD - 05/17/2024 3:00 PM EST C/C: dental exam I.O.E: localized erythematous and edematous gingiva, gen plaque accumulation, E.O.E: wnl OCS: wnl Head and neck: wnl Radiographic: gen slight periodontal bone loss Dx: gen chronic slight periodontitis Tx: prophy, recall exam Francie documented in this encounter Plan of Treatment Upcoming Encounters Date Type Department Care Team (Late st Contact Info) Description 08/01/2024 11:30 AM EDT Office Visit [facility] MEDICINE [address] [place] [address] Natalia Williamson MD [address] [place] [address] 09/09/2024 3:00 PM EDT Office Visit [facility] OPTOMETRY [address] [place] [address] Melita Pacheco OD [address] [place] [address] 11/20/2024 3:00 PM EDT Office Visit [facility] ADULT DENTAL [address] [place] [address] America García Scheduled Orders Name Type Priority Associated Diagnoses Orde r Schedule PROPHYLAXIS - ADULT Dental Routine 1 Occ urrences starting 05/17/2024 documented as of this encounter Procedures Procedure Name Priority Date/Time Associated Diagnosis Comments PROPHYLAXIS - ADULT Routine 05/17/2024 3 :00 PM EST Dental calculus Dental plaque PERIODIC ORAL EVALUATION - ESTABLISHED PATIENT Routine 05/17/2024 3:00 PM EST ORAL HYGIENE INSTRUCTIONS Routine 05/17/2024 3:00 PM EST Dental calculus Dental plaque ADJUNCTIVE GENERAL SERVICES - PROFESSIONAL VISITS - CASE PRESENTATION, SUBSEQUENT TO DETAILED AND EXTENSIVE TREATMENT PLANNING Routine 05/17/2024 3:00 PM EST BITEWINGS - 4 RADIOGRAPHIC IMAGES Routine 05/17/2024 3:00 PM EST 19 DO COMPOSITE FILLING Routine 05/17/19 25 12:00 AM EST 31 MO AMALGAM FILLING Routine 05/17/2024 12:00 AM EST 20 DO AMALGAM FILLING Routine 05/17/2024 12:00 AM EST 19 MOL AMALGAM FILLING Routine 12:00 AM EST 18 O AMALGAM FILLING Routine 05/17/2024 12:00 AM EST 13 MO AMALGAM FILLING Routine 05/17/2024 12:00 AM EST 12 DO AMALGAM FILLING Routine 05/17/2024 12:00 AM EST 3 LO AMALGAM FILLING Routine 05/17/2024 12:00 AM EST 2 O AMALGAM FILLING Routine 05/17/2024 1 2:00 AM EST 30 MODB AMALGAM FILLING Routine 05/17/19 25 12:00 AM EST documented in this encounter Visit Diagnoses Diagnosis Dental calculus- Primary Accretions on teeth Dental plaque Accretions on teeth documented in this encounter Care Teams Tool Clerk Relationship Specialty Start Date End Date Natalia Williamson MD [address] [place] [address] PCP - General Internal Medicine 02/27/23 documented as of this encounter
--- OUTSIDE RECORDS SUMMARY | 2024-06-10 19:38 | XMS_ITS | Encounter Summary ---
Author Organization [employer] Address [address] [facility] [address] [place] [address] Care Team Providers Care Skin Lifter Bacon Name Role Phone Natalia Williamson MD Primary Care Provider + Reason for Visit * Reason Onset Date Comments Med Refill 05/19/2024 Encounter Details Date Type Department Care Team (Late st Contact Info) Description 05/19/2024 Refill [facility] [address] [place], [place] [phone] Natalia Williamson MD [address] [place], [place] [phone] Social History Tobacco Use Types Packs/Day Years [...] [facility] [address] [place] [address] Natalia Williamson MD [address] [place] [address] 09/09/2024 3:00 PM EDT Office Visit [facility] OPTOMETRY [address] [place] [address] Junior, Melita, OD [address] [place] [address] 11/20/2024 3:00 PM EDT Office Visit [facility] ADULT DENTAL [address] [place] [address] America García documented as of this encounter Visit Diagnoses Not on filedocumented in this encounter Care Teams Skin Lifter Bacon Relationship Specialty Start Date End Date Natalia Williamson MD [address] [place] [address] PCP - General Internal Medicine 02/27/23 documented as of this encounter
--- OUTSIDE RECORDS SUMMARY | 2024-06-10 19:38 | XMS_ITS | Encounter Summary ---
Author Organization [employer] Address [address] [facility] [address] [place] [address] Care Team Providers Care Barrel Loader And Cleaner Name Role Phone Natalia Williamson MD Primary Care Provider + Reason for Visit * Reason Comments Med Refill Encounter Details Date Type Department Care Team ([facility] st Contact Info) Description 07/27/2023 Refill [facility] [address] [place], [place] [phone] Natalia Williamson MD [address] [place], [place] [phone] Mild intermittent asthma without complication Social History Tobacco Use Types Packs/Day Years [...] Recorded Patient Health Questionnaire-2 Score 0 03/31/2023 Comments No Sex and Gender Information Value [...] Description 08/01/2024 11:30 AM EDT Office Visit [facility] [address] [place] [address] Natalia Williamson MD [address] [place] [address] 09/09/2024 3:00 PM EDT Office Visit [facility] OPTOMETRY [address] [place] [address] Junior, Melita, OD [address] [place] [address] 11/20/2024 3:00 PM EDT Office Visit [facility] ADULT DENTAL [address] [place] [address] America García documented as of this encounter Visit Diagnoses Diagnosis Mild intermittent asthma without complication documented in this encounter Care Teams Barrel Loader And Cleaner Relationship Specialty Start Date End Date Natalia Williamson MD [address] [place] [address] PCP - General Internal Medicine 02/27/23 documented as of this encounter
--- OUTSIDE RECORDS SUMMARY | 2024-06-10 19:38 | XMS_ITS | Encounter Summary ---
Author Organization [employer] Address [address] [facility] [place] [address] Care Team Providers Care Police Superintendent Name Role Phone Natalia Williamson MD Primary Care Provider + Reason for Visit * Reason Comments Med Refill Encounter Details Date Type Department Care Team ([facility] st Contact Info) Description 07/24/2023 Refill [facility] MED[facility]INE [address] [place], [place] [phone] Natalia Williamson MD [address] [place], [place] [phone] Mild intermittent asthma without complication Social History [...] Description 08/01/2024 11:30 AM EDT Office Visit [facility] MED[facility]INE [address] [place] [address] Natalia Williamson MD [address] [place] [address] 09/09/2024 3:00 PM EDT Office Visit [facility] OPTOMETRY [address] [place] [address] Junior, Melita, OD [address] [place] [address] 11/20/2024 3:00 PM EDT Office Visit [facility] ADULT DENTAL [address] [place] [address] America García documented as of this encounter Visit Diagnoses Diagnosis Mild intermittent asthma without complication documented in this encounter Care Teams Police Superintendent Relationship Specialty Start Date End Date Natalia Williamson MD [address] [place] [address] PCP - General Internal Medicine 02/27/23 documented as of this encounter
--- OUTSIDE RECORDS SUMMARY | 2024-06-10 19:39 | XMS_ITS | Encounter Summary ---
Author Organization [employer] Address [address] [place] [address] Care Team Providers Care Escrow Secretary Name Role Phone Natalia Williamson MD Primary Care Provider + Reason for Visit * Reason Onset Date Comments Med Refill 05/19/2024 Encounter Details Date Type Department Care Team (Late st Contact Info) Description 05/19/[address] [facility] [address] [place], [place] [phone] Natalia Williamson MD [address] [place], [place] [phone] Back muscle spasm Social History Tobacco Use [...] Office Visit [facility] [address] [place] [address] Natalia Williamson MD [address] [place] [address] 09/09/2024 3:00 PM EDT Office Visit [facility] OPTOMETRY [address] [place] [address] Junior, Melita, OD [address] [place] [address] 11/20/2024 3:00 PM EDT Office Visit [facility] ADULT DENTAL [address] [place] [address] America García documented as of this encounter Visit Diagnoses Diagnosis Back muscle spasm Other symptoms referable to back documented in this encounter Care Teams Escrow Secretary Relationship Specialty Start Date End Date Natalia Williamson MD [address] [place] [address] PCP - General Internal Medicine 02/27/23 documented as of this encounter
--- OUTSIDE RECORDS SUMMARY | 2024-06-10 19:39 | XMS_ITS | Encounter Summary ---
Author Organization [employer] Address [address] [facility] [address] [place] [address] Care Team Providers Care Back Roll Lathe Operator Name Role Phone Natalia Williamson MD Primary Care Provider + Reason for Referral * Imaging (Routine) - Authorized Specialty Diagnoses / Procedures Referred By Contac t Referred To Contact Radiology Diagnoses Ovarian cyst, complex Procedures US Pelvis Transvaginal Natalia Williamson MD [address] [place] [address] Phone: tel: fax: [address] Phone: tel: fax: Referral ID Status Reason Start Date Expiration Date V isits Requested Visits Authorized [id number] Authorized 06/03/2024 06/03/2025 1 1 * Imaging (Routine) - Authorized Specialty Diagnoses / Procedures Referred By Contac t Referred To Contact Radiology Diagnoses Ovarian cyst, complex Procedures Us Pelvis complete Natalia Williamson MD [address] [place] [address] Phone: tel: fax: [address] Phone: tel: fax: Referral ID Status Reason Start Date Expiration Date V isits Requested Visits Authorized [id number] Authorized 06/03/2024 06/03/2025 1 1 Encounter Details Date Type Department Care Team (Late st Contact Info) Description 06/03/2024 Orders Only [facility] MED[facility]INE [address] [place] [address] Natalia Williamson MD [address] [place], [place] [phone] Ovarian cyst, complex (Primary Dx) Social History Tobacco Use Types Packs/Day Years Used Date Smoking Tobacco: Never Passive Smoke Exposure: Never Smokeless Tobacco: Never Alcohol Use Standard Drinks/Week Comments Never 0 (1 standard drink = 0.6 oz pur e alcohol) Housing Stability Answer Date Recorded What is your housing situation today? I have romymarcell carlson 03/22/[address] you [...] Description 08/01/2024 11:30 AM EDT Office Visit [facility] MED[facility] [address] [place] [address] Natalia Williamson MD [address] [place] [address] 09/09/2024 3:00 PM EDT Office Visit [facility] OPTOMETRY [address] [place] [address] Junior, Melita, OD [address] [place] [address] 11/20/2024 3:00 PM EDT Office Visit [facility] ADULT DENTAL [address] [place] [address] America García Scheduled Orders Name Type Priority Associated Diagnoses Orde r Schedule Us Pelvis complete Imaging Routine Ovarian cyst, complex Expected: 06/03/2024 (Approximate), Expires: 06/03/2025 US Pelvis Transvaginal Imaging Routine Ovarian cyst, complex Expected: 06/03/2024 (Approximate), Expires: 06/03/2025 documented as of this encounter Visit Diagnoses Diagnosis Ovarian cyst, complex- Primary documented in this encounter Care Teams Back Roll Lathe Operator Relationship Specialty Start Date End Date Natalia Williamson MD [address] [place] [address] PCP - General Internal Medicine 02/27/23 documented as of this encounter
--- OUTSIDE RECORDS SUMMARY | 2024-06-10 19:39 | XMS_ITS | Encounter Summary ---
Author Organization [employer] Address [address] [place] [address] Care Team Providers Care Hanging Flags Decorator Name Role Phone Natalia Williamson MD Primary Care Provider + Encounter Details Date Type Department Care Team (Latest Contact Info) Description 06/04/2024 Travel Social History Tobacco Use Types Packs/Day Years [...] 11:30 AM EDT Office Visit [facility] MEDICINE [address] [place] [address] Natalia Williamson MD [address] [place] [address] 09/09/2024 3:00 PM EDT Office Visit [facility] OPTOMETRY [address] [place] [address] Junior, Melita, OD [address] [place] [address] 11/20/2024 3:00 PM EDT Office Visit [facility] ADULT DENTAL [address] [place] [address] America García documented as of this encounter Visit Diagnoses Not on filedocumented in this encounter Care Teams Hanging Flags Decorator Relationship Specialty Start Date End Date Natalia Williamson MD [address] [place] [address] PCP - General Internal Medicine 02/27/23 documented as of this encounter
--- OUTSIDE RECORDS SUMMARY | 2024-06-10 19:39 | XMS_ITS | Clinical Summary ---
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 022 Active fluticasone (Flonase Allergy Relief) 50 MCG/ACT nasal spray Administer 2 sprays into affected nostril(s) 1 (one) time each day. 021 Active sodium chloride ([place]) 0.65 % nasal spray 1-2 spray on each nostril every 2-3 hours as needed for nasal congestion 022 Active tretinoin (Retin-A) 0.05 % cream Apply topically at bed time. 021 Active clobetasol (Temovate) 0.05 % ointmentIndicat ions:Lichen nitidus Apply topically every 12 (twelve) hours. 45 g 1 023 Active Misc. Devices (Pulse Oximeter For Finger) miscIndications :COVID-19 To use every 4 hours. Call the office if O2Sat < 90% 1 each 023 Active Blood Pressure Monitor kit Use as directed 3x/week 1 kit 023 Active ketoconazole (NIZOral) 2 % shampoo APPLY TO SCALP TWICE PER WEEK LEAVE ON 5 MINUTES THEN WASH OFF Active topiramate (Topamax) 25 MG tablet Take 25 mg by mouth 2 times daily. Active tacrolimus (Protopic) 0.1 % ointment APPLY TO FACE TWICE A DAY NEEDED FLARES. Active albuterol (Ventolin HFA) 108 (90 Base) MCG/ACT inhalerIndicati ons:Mild intermittent asthma without complication INHALE 2 PUFFS BY MOUTH EVERY 4 HOURS NEEDED FOR WHEEZE 18 g 1 Active albuterol (2.5 MG/3ML) 0.083% nebulizer solution Take 3 mL by nebulization every 6 (six) hours if needed for wheezing. 75 mL 1 Active cyclobenzaprine (Flexeril) 10 MG tabletIndicatio ns:Back muscle spasm TAKE 1 TABLET BY MOUTH EVERY DAY NEEDED FOR MUSCLE SPASMS 30 tablet 2 Active loratadine (Claritin) 10 MG tablet TAKE 1 TABLET BY MOUTH EVERY DAY IN THE MORNING 90 tablet 1 Active fluticasone furoate (Arnuity Ellipta) 200 MCG/ACT inhaler INHALE 1 PUFF BY MOUTH ONCE A DAY. RINSE MOUTH AFTER USE. 1 each 11 Active ergocalciferol (Vitamin D2) 1.25 MG (54028 UT) capsule Take 1 capsule (1.25 mg) by mouth 1 (one) time per week. 12 capsule 1 025 2024 Active naproxen (Naprosyn) 500 MG tablet Take 1 tablet (500 mg) by mouth if needed in the morning and at bedtime for mild pain or moderate pain. 60 tablet Active Stool Softener 100 MG capsule TAKE 1 CAPSULE BY MOUTH TWICE A DAY 180 capsule 025 Active cyclobenzaprine (Flexeril) 10 MG tabletIndicatio ns:Back muscle spasm Take 1 tablet (10 mg) by mouth if needed each day for muscle spasms. 90 tablet 1 024 2024 Discontinued(R eorder (will not trigger notification to Pharmacy)) loratadine (Claritin) 10 MG tablet TAKE 1 TABLET BY MOUTH EVERY DAY IN THE MORNING 90 tablet 1 024 2024 Discontinued(R eorder (will not trigger notification to Pharmacy)) ergocalciferol (Vitamin D2) 1.25 MG (26652 UT) capsule Take 1 capsule (1.25 mg) by mouth 1 (one) time per week. 12 capsule 1 024 2024 albuterol (2.5 MG/3ML) 0.083% nebulizer solution Take 3 mL by nebulization every 6 (six) hours if needed for wheezing. 75 mL 1 024 2024 Discontinued(R eorder (will not trigger notification to Pharmacy)) naproxen (Naprosyn) 500 MG tablet TAKE 1 TABLET BY MOUTH TWICE A DAY 60 tablet 024 2024 Discontinued(R eorder (will not trigger notification to Pharmacy)) fluticasone furoate (Arnuity Ellipta) 200 MCG/ACT inhaler Inhale 1 puff Once per day. Rinse mouth with water after use to reduce aftertaste and incidence of candidiasis. Do not swallow. 1 each 024 2024 Discontinued(R eorder (will not trigger notification to Pharmacy)) docusate sodium (Colace) 100 MG capsule Take 1 capsule (100 mg) by mouth 2 times daily. 60 capsule 025 2024 Discontinued(R eorder (will not trigger notification to Pharmacy)) Active Problems Problem Noted Date Diagnosed Date Right ovarian cyst 06/04/2024 Assessment & Plan (06/04/2024 12:56 PM EST): Unclear if it is a dermoid versus physiological cyst, needs FU pelvic US. Pt referred to [facility]. Take Naproxen PRN pain and go to ED or WIC if she develops new symptoms or symptoms do not improve. FU with me in 6-8 weeks. Slow transit constipation 06/04/2024 Assessment & Plan (06/04/2024 12:57 PM EST): It could be related to pelvic pain versus regular constipation. See above, start Colace BID. Ovarian cyst, complex 06/03/2024 Pelvic pain 04/04/2024 Assessment & Plan (04/04/2024 9:34 AM EST): Rule out ovarian cyst, fibroid or STI. Order ultrasound and vaginal swab. Idiopathic intracranial hypertension 01/30/2024 Overview (01/30/2024): FU by Dr Moises Mederos with opening LP pressure of 30-31 MRI on 2018 showed punctuate right parietal hyperintensity Chronic nonintractable headache 01/30/2024 Dental caries 06/20/2023 Dental plaque 04/26/2023 Encounter for preventive health examination 03/15 Assessment & Plan (04/04/2024 9:37 AM EST): Discussed with patient re increase fresh fruit and vegetable intake. Counseled re moderate exercise as tolerated, up to 20min/d Patient feels safe at home. PAP smear: up to date, next one 2025. Eye exam: up to date, next one 03/09. Lipids/FBS: up to date, next one 2024. Vaccinations: advised to get Covid booster, will check T-SPOT. All other immunizations are up to date. Dental visit: over due, she will contact dental office. Assessment & Plan (03/31/2023 10:30 AM EST): Discussed with patient re increase fresh fruit and vegetable intake. Counseled re moderate exercise as tolerated, up to 20min/d Patient feels safe at home. PAP smear up to date, next one due 2025 Eye exam up to date, next one due 2023 Labs to be ordered Vaccinations, Hep B immune. TD, MMR, + Flu up to date. Counseled to have PCV 20 within 2-3 wks and Covid IZ can wait up to 3 months. Dental visit overdue, counseled to make appointment at [facility] dental. Info on dental clinic provided today. 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 RTC PRN worsening or concerns Refer physical therapy Assessment & Plan (08/31/2023 2:22 PM EDT): Improved. Continue Tylenol and Flexeril prn pain Disorder of patellofemoral joint 04/06/2022 Assessment & Plan (11/27/2023 5:08 PM EDT): Sp PT last year Recc'd weight reduction, continue daily exercise and advised to come to acupuncture. FU prn for intraarticular inj prn. Dysmenorrhea 04/06/2022 Assessment & Plan (06/04/2024 12:57 PM EST): Most likely related to ovarian cyst, see above. Lactose intolerance 04/06/2022 Irritant contact dermatitis 04/06/2022 Low vision, both eyes 04/06/2022 Tear of medial meniscus of knee 04/06/2022 Acne vulgaris 04/06/2022 Backache 04/06/2022 Essential hypertension 07/24/2017 Assessment & Plan (11/27/2023 4:54 PM EDT): Controlled, see note from recent visit. Advised to get labs done, we'll call her prn or fu with her in 5m Assessment & Plan (10/23/2023 4:50 PM EDT): Better controlled, Stressed the Importance of weight reduction, exercise , low Na diet Continue off meds for now Check home BP BIW and prn CP/MOREL/HERRERA Non smoking patient. Fu in 4 - 5m Assessment & Plan (08/31/2023 2:21 PM EDT): She gained few Lbs since last visit. Continue off meds for now. Stressed the importance of weight reduction/low ginette intake Counseled re low salt diet/increase moderate physical activity. Check home BP BIW and prn CP/MOREL/HERRERA Non smoking patient. Fu in 6m Assessment & Plan (03/31/2023 10:27 AM EST): Stage 1 She's not on any medications and wants to continue with lifetime modifications. Counseled re low salt diet/increase moderate physical activity. Non smoking patient. I gave her prescritiosn for BP machine to check BP TID and FU in 6-8 wks Mild intermittent asthma 07/24/2017 Assessment & Plan (04/04/2024 9:35 AM EST): Is controlled. She has occasional exacerbations, doing well on Albuterol prn. Recommended to restart Flovent BID. Declined Influenza Immunization. She is a non smoker. All other immunizations are up to date. Assessment & Plan (03/31/2023 10:28 AM EST): Controlled. Cont Flovent BID + Albuterol PRN Counseled to have PCV 20 within 2-3 wks and Covid booster within 90 days max Obesity 07/24/2017 Assessment & Plan (04/04/2024 9:10 AM EST): Discussed re weight reduction options including exercise, life style modifications, diet and referral to ear nose and throat specialist. Recommended to decrease soda and sugary beverage consumption, increase protein intake with meals (at least 1 portion of protein with each meal) to assist with satiety, increase dietary fiber Recommended at least 150 min/week of moderate intensity exercise. History of abnormal cervical Papanicolaou smear 07/24/2017 Assessment & Plan (10/23/2023 4:50 PM EDT): Her most recent PAPs (2015 and 2020) are normal, Next PAP due on 2025. No PAP needed today. Assessment & Plan (08/31/2023 2:23 PM EDT): Last PAP on 2020 was normal (NIL/Neg HPV). FU PAP on 2025 Resolved Problems Problem Noted Date Diagnosed Date Resolved Date Elevated blood pressure reading 04/06/2022 05/22/2023 Pain in female pelvis 04/06/20224 Initial patient encounter 04/06/2022 Adjustment disorder 08/28/2018 05/22/19 24 Diarrhea 08/28/2018 05/22/2023 Chronic low back pain 07/24/20172023 Encounters Date Type Department Care Team Description 06/04/2024 12:00 PM EST Telemedicine [facility] [address] [place] [address] Natalia Williamson MD Right ovarian cyst (Primary Dx); Dysmenorrhea; Slow transit constipation 06/04/2024 Telephone [facility] [address] [place] [address] Chloé Garcia, RN Results 06/04/2024 Refill [facility] [address] [place] [address] Natalia Williamson MD 06/04/2024 Travel 06/03/2024 Orders Only [facility] [address] [place] [address] Natalia Williamson MD Ovarian cyst, complex (Primary Dx) 05/19/2024 Refill [facility] [address] [place] [address] Natalia Williamson MD Back muscle spasm 05/19/2024 Refill [facility] [address] [place] [address] Natalia Williamson MD Back muscle spasm 05/19/2024 Refill [facility] [address] [place] [address] Natalia Williamson MD 05/19/2024 Refill [facility] [address] [place] [address] Natalia Williamson MD 05/19/2024 Refill [facility] [address] [place] [address] Natalia Williamson MD Back muscle spasm 05/17/2024 3:00 PM EST Office Visit [facility] [address] [place] [address] America García Dental calculus (Primary Dx); Dental plaque 04/17/2024 Telephone [facility] [address] [place] [phone] Natalia Williamson MD Medication Question; FYI 04/17/2024 Refill [facility] [address] [place] [address] Natalia Williamson MD 04/16/2024 Refill [facility] [address] [place] [address] Natalia Williamson MD Mild intermittent asthma without complication 04/10/2024 Telephone [facility] [address] [place] [phone] Chloé Garcia, RN PE form 04/09/2024 Travel 04/08/2024 10:15 AM EST Office Visit [facility] [address] [place] [id number] Junior, Melita, OD Hypermetropia of both eyes not needing correction (Primary Dx) 04/08/2024 Refill [facility] [address] [place] [phone] Natalia Williamson MD 04/04/2024 9:15 AM EST Office Visit [facility] [address] [place] [phone] Natalia Williamson MD Encounter for preventive health examination (Primary Dx); Class 2 severe obesity due to excess calories with serious comorbidity and body mass index (BMI) of 37.0 to 37.9 in adult ([facility]); Pelvic pain; Mild intermittent asthma without complication; Exercise counseling; Dietary counseling; Pain in female pelvis 04/04/2024 Orders Only [facility] [address] [place] [phone] Natalia Williamson MD 04/04/2024 Travel 04/03/2024 Telephone [facility] [address] [place] [phone] Nazia Norman MA Chart prep 04/02/2024 Refill [facility] [address] [place] [address] Natalia Williamson MD 03/27/2024 Patient Outreach [facility] [address] [place] [phone] Natalia Williamson MD Pre-visit Planning ([facility] screening completed on 11/20/2023) 03/25/2024 Refill [facility] [address] [place] [phone] Natalia Williamson MD from Last 3 Months Immunizations Name Administration Dates Next Due Hep B, Unspecified 02/17/2002,03/10/1998 Hep B, adult 07/01/2022, 2,03/11/2022,2018,12/19/1996 Influenza injectable quadriv alent preservative free 03/08/2023,02/10/2022,02/15/2021,2018,07/09/2018 Influenza, High Dose Seasona l, Preservative Free 03/28/2017 MMR 04/15/2022,03/11/2022,08/28/2018 Pfizer Covid-19 Vaccine 12+ 07/14/2020, Pfizer Covid-19 Vaccine 12+ Bivalent 02/14/2022 Pneumococcal Conjugate PCV 20 05/03/2023 TD (adult), 2 Lf tetanus tox oid, preservative free, adsorbed 08/28/2018 Tdap 01/03/2009 Family History Medical History Relation Name Comments Depression Father Hypertension Mother Relation Name Status Comments Father Alive Mother Alive Social History Tobacco Use Types Packs/Day Years Used Date Smoking Tobacco: Never Passive Smoke Exposure: Never Smokeless Tobacco: Never Tobacco Cessation:Counseling Given: Not Answered Alcohol Use Standard Drinks/Week Comments Never 0 [...] Orientation Straight 03/14/2022 10 :33 AM EDT Last Filed Vital Signs Vital Sign Reading Time Taken Comments Blood Pressure 152/84 05/17/2024 3:25 PM EST Pulse 67 04/04/2024 9:12 AM EST Temperature 37.1 ??C (98.8 ??F) 04/04/2024 9:12 AM ES T Respiratory Rate 16 04/04/2024 9:12 AM EST Oxygen Saturation 97% 04/04/2024 9:12 AM EST Inhaled Oxygen Concentration - - Weight 91.8 kg (202 lb 6.4 oz) 04/04/2024 9:12 A M EST Height 160 cm (5' 3 ) 04/04/2024 9:12 AM EST Body Mass Index 35.85 04/04/2024 9:12 AM EST Plan of Treatment Upcoming Encounters Date Type Department Care Team (Late st Contact Info) Description 08/01/2024 11:30 AM EDT Office Visit [facility] [address] [place] [address] Natalia Williamson MD [address] [place] [address] 09/09/2024 3:00 PM EDT Office Visit [facility] [address] [place] [address] Melita Pacheco, OD [address] [place] [address] 11/20/2024 3:00 PM EDT Office Visit [facility] [address] [place] [address] America García Health Maintenance Due Date Last Done Comments Alcohol/Substance Use Screening 2003 Family Planning (PISQ) 2006 Hepatitis C Screening 2009 COVID-19 Vaccine ( season) 2024 02/14/2022, 07/14/2020, 06/23/2020 Depression Screening 03/31/2024 03/31/2023, 03/31/20 Dental X-Ray: Full Mouth 07/09/2024 07/08/2021, 10/13 Dental Oral Exam 11/15/2024 05/17/2024, 10/2023, 07/08/2021, Additional history exists Dental Prophylaxis 11/15/2024 05/17/2024, 1 06/27/2022, 01/07/2022, Additional history exists SDOH Screening 11/19/2024 11/20/2023 Tobacco Screening 05/17/2025 05/17/2024 Dental X-Ray: Bitewings 05/18/2025 05/17/19, 04/26/2023, 01/07/2022, Additional history exists Cervical Cancer Screening 10/23/2025 HPV/Cotest 10/23/2025 10/23/2020 Pap Smear 10/23/2025 10/23/2020 DTaP/Tdap/Td Vaccines (3 - Td or Tdap) 08/28/2028 08/28/2018, 01/03/2009 Lipid Panel 04/04/2029 04/04/2024, 03/15, 02/14/2022, Additional history exists Zoster Vaccines (1 of 2) 2041 RSV Patients and Patients Aged 60 years or older (1 - 1-dose 75+ series) 2066 Hepatitis B Vaccines Completed 07/01/2022, 04/15/2022, 03/11/2022, Additional history exists Pneumococcal Vaccine: Pediatrics (0 to 5 Years) and At-Risk Patients (6 to 64 Years) Completed 05/03/2023 Influenza Vaccine Completed 01/19/2024, , 02/10/2022, Additional history exists HIV Screening Completed 04/04/2024, 03/15, 02/14/2022 HIB Vaccines Aged Out No longer eligi ble based on patient's age to complete this topic HPV Vaccines Aged Out No longer eligi ble based on patient's age to complete this topic Hepatitis A Vaccines Aged Out No long er eligible based on patient's age to complete this topic IPV Vaccines Aged Out No longer eligi ble based on patient's age to complete this topic Meningococcal Vaccine Aged Out No sharon juliann eligible based on patient's age to complete this topic RSV under 20 months Aged Out No longe r eligible based on patient's age to complete this topic Rotavirus Vaccines Aged Out No longer eligible based on patient's age to complete this topic Procedures Procedure Name Priority Date/Time Associated Diagnosis Comments PERIODIC ORAL EVALUATION - ESTABLISHED PATIENT Routine 05/17/2024 3:00 PM EST ADJUNCTIVE GENERAL SERVICES - PROFESSIONAL VISITS - CASE PRESENTATION, SUBSEQUENT TO DETAILED AND EXTENSIVE TREATMENT PLANNING Routine 05/17/2024 3:00 PM EST BITEWINGS - 4 RADIOGRAPHIC IMAGES Routine 05/17/2024 3:00 PM EST ORAL HYGIENE INSTRUCTIONS Routine 05/17/2024 3:00 PM EST Dental calculus Dental plaque PROPHYLAXIS - ADULT Routine 05/17/2024 3 :00 PM EST Dental calculus Dental plaque 31 MO AMALGAM FILLING Routine 05/17/2024 12:00 AM EST 20 DO AMALGAM FILLING Routine 05/17/2024 12:00 AM EST 19 DO COMPOSITE FILLING Routine 05/17/2024 12:00 AM EST 19 [...] AM EST 30 MODB AMALGAM FILLING Routine 05/17/2024 12:00 AM EST US PELVIS TRANSVAGINAL Routine 4 2:47 PM EST Pelvic pain VITAMIN D,25-OH,TOTAL,IA Routine 04/04/2024 9:45 AM EST Encounter for preventive health examination SYPHILIS SCREEN Routine 04/04/2024 9:45 AM EST Encounter for preventive health examination HIV 1/2 ANTIGEN/ANTIBODY, FOURTH GENERATION W/RFL Routine 04/04/2024 9:45 AM EST Encounter for preventive health examination LIPID PANEL WITH REFLEX TO DIRECT LDL Routine 04/04/2024 9:45 AM EST Class 2 severe obesity due to excess calories with serious comorbidity and body mass index (BMI) of 37.0 to 37.9 in adult ([facility]) BASIC METABOLIC PANEL Routine 04/04/2024 9:45 AM EST Class 2 severe obesity due to excess calories with serious comorbidity and body mass index (BMI) of 37.0 to 37.9 in adult ([facility]) HEMOGLOBIN A1C Routine 04/04/2024 9:45 AM EST Class 2 severe obesity due to excess calories with serious comorbidity and body mass index (BMI) of 37.0 to 37.9 in adult ([facility]) T-SPOT(R).TB Routine 04/04/2024 9:45 AM EST Encounter for preventive health examination CHLAMYDIA/N. GONORRHOEAE RNA, TMA, UROGENITAL Routine 04/04/2024 9:45 AM EST Pain in female pelvis BACTERIAL VAGINOSIS PANEL Routine 04/04/2024 9:31 AM EST DIAGNOSTIC - DIAGNOSTIC IMAGING - INTRAORAL - COMPREHENSIVE SERIES OF RADIOGRAPHIC IMAGES Routine 07/08/2021 12:00 AM EST HPV MRNA E6/E7 Routine 10/23/2020 12:00 AM EDT THINPREP PAP Routine 10/23/2020 12:00 AM EDT from Last 3 Months or Most Recently Relevant to Health Maintenance Results * US Pelvis Transvaginal (04/16/2024 2:47 PM EST) Anatomical Region Laterality Modality Pelvis Ultrasound 04/16/2024 2:47 PM EST Narrative 06/02/2024 11:56 AM EST ? [facility] ?[address] ?[place] [address] ? Ultrasound Report ? Signed ? Patient: Denisha Michaels ?MR#: ?? [id number] ? : 1990 ?Acct:[id number] ? Age/Sex: 34 / F ?ADM Date: 04/16/24 ? Loc: HO.US ? Attending Dr: Natalia Williamson MD ? Ordering Physician: Natalia Williamson MD ?? Date of Service: 04/16/24 ?? Procedure(s): US pelvic and transvaginal ?? Accession Number(s): [id number] ? cc: Natalia Williamson MD ? EXAMINATION: ? US PELVIS ? CLINICAL INFORMATION: ? Pelvic pain, last menstrual period 03/21/2024, ? COMPARISON: ?? 07/08/2023. ? TECHNIQUE: ?? Ultrasound of the pelvis is performed using both transabdominal and ?? transvaginal transducers along with Doppler. Transvaginal imaging is ?? performed due to inadequate visualization transabdominally. ? FINDINGS: ?? The uterus is anteverted and measures 8.6 x 4.8 x 6.1 cm. ?? Endometrium is echogenic with thickness of 11 mm. ?? Nabothian cysts in the cervix. ? Left ovary measures 2.1 x 1.3 x 2.3 cm, volume 4.5 mL. Left ovary seen ?? on limited transabdominal ultrasound images. ? Right ovary measures 4.5 x 2.5 x 2.9 cm, volume 170.8 mL. ? 2.1 x 1.5 x 1.6 cm complex right ovarian cyst with diffuse internal ?? echoes and possible septations. Small amount of free fluid adjacent to ?? the right ovary. ? US/US pelvic and transvaginal ?? IMPRESSION: ?? 2.1 x 1.5 x 1.6 cm complex right ovarian cyst with diffuse internal ?? echoes and possible septations was not identified on the prior ?? ultrasound and may represent a hemorrhagic cyst. Small amount of free ?? fluid adjacent to the right ovary. Recommend followup ultrasound in 6-8 ?? weeks. ? Electronically signed by: ??Shahla Crews MD ??06/02/2024 11:53 AM EST ?? RP ? Dictated By: ?Shahla Crews MD ? Signed By: ?<Electronically signed by Shahla Crews MD in OV> ? 06/02/243 ? DD/ 1447 ? TD/TT: 04/16/24 1516 ? Lobster Catcher: ? Procedure Note Donotabimaelinterpreter, Image - 06/02/2024 [place] [address] Ultrasound Report Signed Patient: Denisha MichaelsMR#: [id number] : 1990Acct:[id number] Age/Sex: 34 / FADM Date: 04/16/24 Loc: HO.US Attending Dr: Natalia Williamson MD Ordering Physician: Natalia Williamson MD Date of Service: 04/16/24 Procedure(s): US pelvic and transvaginal Accession Number(s): [id number] cc: Natalia Williamson MD EXAMINATION: US PELVIS CLINICAL INFORMATION: Pelvic pain, last menstrual period 03/21/2024, COMPARISON: 07/08/2023. TECHNIQUE: Ultrasound of the pelvis is performed using both transabdominal and transvaginal transducers along with Doppler. Transvaginal imaging is performed due to inadequate visualization transabdominally. FINDINGS: The uterus is anteverted and measures 8.6 x 4.8 x 6.1 cm. Endometrium is echogenic with thickness of 11 mm. Nabothian cysts in the cervix. Left ovary measures 2.1 x 1.3 x 2.3 cm, volume 4.5 mL. Left ovary seen on limited transabdominal ultrasound images. Right ovary measures 4.5 x 2.5 x 2.9 cm, volume 170.8 mL. 2.1 x 1.5 x 1.6 cm complex right ovarian cyst with diffuse internal echoes and possible septations. Small amount of free fluid adjacent to the right ovary. US/US pelvic and transvaginal IMPRESSION: 2.1 x 1.5 x 1.6 cm complex right ovarian cyst with diffuse internal echoes and possible septations was not identified on the prior ultrasound and may represent a hemorrhagic cyst. Small amount of free fluid adjacent to the right ovary. Recommend followup ultrasound in 6-8 weeks. Electronically signed by: Shahla Crews MD 06/02/2024 11:53 AM EST Dictated By: Shahla Crews MD Signed By: <Electronically signed by Shahla Crews MD in OV> 06/02/24 1153 DD/ 1447 TD/TT: 04/16/24 1516 Lobster Catcher: Natalia Williamson MD IMG US PROCEDURES Edited Result - Final * Syphilis Screen (04/04/2024 9:45 AM EST) Syphilis Screen Nonreactive Nonreactive LABS Blood 04/04/2024 9:45 AM EST 04/04/2024 11:09 AM EST us Natalia Williamson MD LAB BLOOD ORDERABLES Fin al Result LABS [address] [place] [address] [phone] * (ABNORMAL) Vitamin D, 25-Hydroxy, Total, Immunoassay (04/04/2024 9:45 AM EST) Vitamin D 25-OH Total 22.3(L) >30 ng/mL LABS Comment:Health Based Referen ce Values*< 20 ng/mL Kzzsxanmo02-98 ng/mL Insufficient> 30 ng/mL Sufficient*Kyle DE LEON. N Engl J Med. 2007;357:266-280Care must be taken in interpreting Vitamin D results fromdifferent laboratories and methodologies. Published datademonstrated that results from patients undergoinghemodialysis may show a negative bias when tested withvarious automated 25-OH vitamin D assays when compared toLC-MS/MS.When testing samples from patients whose predominant form ofVitamin D is Vitamin D2, such as patients receiving VitaminD2 supplementation, results that are subtherapeutic shouldbe confirmed with another method such as LC-MS/MS. Blood 04/04/2024 9:45 AM EST 04/04/2024 11:09 AM EST Natalia Williamson MD LAB BLOOD ORDERABLES Fin al Result LABS [address] [place] [phone] * T-SPOT??.TB (04/04/2024 9:45 AM EST) [facility] T Spot TB Negative Negative LABS Comment:A negative test resu lt does not exclude the possibilityof exposure to or infection with Mycobacteriumtuberculosis (M. tuberculosis). Patients with recentexposure to TB infected individuals exhibiting anegative T-SPOT.TB result should be considered forretesting within 6 weeks or if other relevant clinicalsymptoms indicate. Results from T-SPOT.TB testing mustbe used in conjunction with each individual'sepidemiological history, current medical status,and results of other diagnostic evaluations.The T-SPOT.TB test is qualitative and results arereported as positive, borderline, or negative, giventhat the test controls perform as expected. In linewith the Centers for Disease Control and Prevention's2010 recommendation to report quantitative measurementsalongside the qualitative result, the laboratoryprovides spot counts for informational purposes only.The T-SPOT.TB test should not be interpreted as aquantitative test. TS PANEL A 1 LABS TS PANEL B 2 LABS Negative Control Passed [facility] LABS Positive Control Passed [facility] LAB[facility] Comment:For additional infor bartolome, please refer tohttp://education.AutoeBid/faq/PCK937(This link is being provided for informational/educational purposes only.)THIS TEST WAS PERFORMED AT:[employer] [id number] [place] [id number] ROSARIO MD,PHD 04/04/2024 9:45 AM EST 04/04/2024 11:09 AM EST us Natalia Williamson MD LAB BLOOD ORDERABLES Fin al Result Performing Organization Address [facility] Co de Phone Number LABS [address] [place] [phone] * (ABNORMAL) Lipid Panel with Reflex to Direct LDL (04/04/2024 9:45 AM EST) Triglycerides 75 <150 mg/dL [facility] LAB[facility] Comment:Desirable Triglyceri de: less than 150 mg/dLBorderline High Triglyceride 150-199 mg/dLHigh Triglyceride: 200-499 mg/dLVery High Triglyceride: greater than or equal to 5OO mg/dL Cholesterol 193 <200 mg/dL LABS Comment:Desirable Cholestero l: less than 200 mg/dLBorderline High Cholesterol: 200-239 mg/dLHigh Cholesterol: greater than 239 mg/dL LDL Cholesterol Calculated 112(H) <100 mg/dL LABS Comment:Desirable LDL: less than 100 mg/dLNear Optimal/Above Optimal LDL: 110- 129 mg/dLBorderline High LDL: 130-159 mg/dLHigh LDL: 160-189 mg/dLVery High LDL: greater than or equal to 190 mg/dL HDL Cholesterol 66 >40 mg/dL [facility] LABS Comment:Desirable HDL: great er than 40 mg/dL Note: This HDL assay may give artificially low results in patients with liver disease. Blood 04/04/2024 9:45 AM EST 04/04/2024 11:09 AM EST Natalia Williamson MD LAB BLOOD ORDERABLES Fin al Result Performing Organization Address [facility]/ZIP Co de Phone Number LABS [address] [place] [phone] * Chlamydia/N. Gonorrhoeae RNA, TMA, Urogenitial (04/04/2024 9:45 AM EST) CT PCR NOT DETECTED Not Detect. LABS Comment:A not detected test result does not exclude the possibilityof infection because test results can be affected byimproper specimen collection, concurrent antibiotic therapy,or the number of organisms in the specimen which may bebelow the sensitivity of the test. As with many diagnostictests, results from the Xpert CT/NG assay should beinterpreted in conjunction with other laboratory andclinical data available to the clinician.Xpert CT/NG performance has not been evaluated in patientsless than 14 years of age. The assay should not be used forthe evaluationof suspected sexual abuse or for other medico-legalindications. Additional testing is recommended in anycircumstance when false positive or false negative resultscould lead to adverse medical, social or psychologicalconsequences. NG PCR NOT DETECTED Not Detect. LABS Comment:A not detected test result does not exclude the possibilityof infection because test results can be affected byimproper specimen collection, concurrent antibiotic therapy,or the number of organisms in the specimen which may bebelow the sensitivity of the test. As with many diagnostictests, results from the Xpert CT/NG assay should beinterpreted in conjunction with other laboratory andclinical data available to the clinician.Xpert CT/NG performance has not been evaluated in patientsless than 14 years of age. The assay should not be used forthe evaluationof suspected sexual abuse or for other medico-legalindications. Additional testing is recommended in anycircumstance when false positive or false negative resultscould lead to adverse medical, social or psychologicalconsequences. Swab Vaginal structure / Unknown 04/04/2024 9:45 AM EST 04/04/2024 11:01 AM EST Narrative LABS - 04/04/2024 6:15 PM EST Urine us Natalia Williamson MD LAB MICROBIOLOGY - GENER AL ORDERABLES Final Result LABS [address] [place] [phone] * HIV-1/2 Antigen and Antibodies, Fourth Generation, with Reflexes (04/04/2024 9:45 AM EST) HIV AB/AG Nonreactive Nonreactive [facility] LAB[facility] Comment:HIV-1 p24 Ag and/or HIV-1/HIV-2 Ab not detected.A test result that is nonreactive does not exclude thepossibility of exposure to or infection with HIV-1 and/orHIV-2. Nonreactive results in this assay for individualswith prior exposure to HIV-1 and/or HIV-2 may be due toantigen and antibody levels that are below the limit ofdetection of this assay.The GoVoluntr HIV Ag/Ab Combo assay result andsupplemental assay results should be interpreted inconjunction with the patient's clinical presentation,history and other laboratory results. If the results areinconsistent with clinical evidence, additional testing issuggested to confirm the result. Blood Venous blood specimen / Unknown 04/04/2024 9:45 AM EST 04/04/2024 11:09 AM EST us Natalia Williamson MD LAB BLOOD ORDERABLES Fin al Result LABS [address] [place] [phone] * Hemoglobin A1c (04/04/2024 9:45 AM EST) Hemoglobin A1c 4.9 <6.0 % [facility] LABS Comment:Hemoglobin A1C Refer ence Range Adults: 4.8 - 6.0 % Non diabetic: < 6.0 % Goal: < 7.0 %Additional Action Suggested: > 8.0 %Note: Hemoglobin A1c results are invalid for patients with abnormal amounts of HbF. Blood transfusions may impact the HbA1c concentration in the patient sample. Estimated Average Glucose 94 mg/dL LABS Comment:eAG = Estimated ave rage glucose which is %A1C expressed asaverage glucose, using the formula of the F7G-YaaaccrAhpgxoe Glucose study (ADAG), Diabetes Care, Vol.31,#8,2007 Blood Venous blood specimen / Unknown 04/04/2024 9:45 AM EST 04/04/2024 11:09 AM EST us Natalia Williamson MD LAB BLOOD ORDERABLES Fin al Result Performing Organization Address [facility]/ZIP Co de Phone Number LABS [address] [place] [phone] * (ABNORMAL) Basic Metabolic Panel (04/04/2024 9:45 AM EST) Sodium 139 135 - 145 mmol/L LABS Potassium 3.8 3.3 - 5.1 mmol/L LABS Chloride 107 96 - 108 mmol/L LABS Carbon Dioxide 25 22 - 29 mmol/L LABS Anion Gap 11(L) 12 - 20 LABS Urea Nitrogen (BUN) 13 9 - 16 mg/dL LABS Creatinine, Serum 0.68 0.5 - 1.4 mg/dL LABS Estimated Glomerular Filt Rate >60 LABS Comment:Chronic Kidney Disea se: Estimated GFR < 60 mL/min/1.87l6Mfujeg Kidney Disease: Estimated GFR < 15 mL/min/1.73m2 Glucose 87 60 - 115 mg/dL LABS Calcium 9.7 8.4 - 10.2 mg/dL LABS Blood Venous blood specimen / Unknown 04/04/2024 9:45 AM EST 04/04/2024 11:09 AM EST us Natalia Williamson MD LAB BLOOD ORDERABLES Fin al Result Performing Organization Address [facility]/ZIP Co de Phone Number LABS [address] [place] [phone] * Bacterial Vaginosis (04/04/2024 9:31 AM EST) TRICHOMONAS VAGINALIS DETECTION BY PCR NOT DETECTED Not Detect LABS BACTERIAL VAGINOSIS DETECTION BY PCR NEGATIVE Negative LABS Comment:The BV organism targ ets of the Xpert Xpress MVP test can becommensal in women; Xpert Xpress MVP positive results forbacterial vaginosis should be considered in conjunction withother clinical and patient information to determine thedisease status. Organisms that are not detected by the XpertXpress MVP test have also been reported to be associatedwith BV and aerobic vaginitis.The Xpert Xpress MVP test performance has not been evaluatedin patients under the age of 14. DIYA GROUP DETECTION BY PCR NOT DETECTED Not Detect LABS Diya glab krusei PCR NOT DETECTED Not Detect LABS 04/04/2024 9:31 AM EST 04/04/2024 4:03 PM EST us Natalia Williamson MD LAB MICROBIOLOGY - GENER AL ORDERABLES Final Result LABS [address] [place] [phone] * THINPREP PAP (10/23/2020 12:00 AM EDT) Clinical Information: None given [facility] COMMENT SEE COMMENT [facility] Comment: EXPLANATORY NOTE: ? The Pap is a screening test for cervical cancer. It is ?? not a diagnostic test and is subject to false negative ?? and false positive results. It is most reliable when a ?? satisfactory sample, regularly obtained, is submitted ?? with relevant clinical findings and history, and when ?? the Pap result is evaluated along with historic and ?? current clinical information. ?? Poultry Pathologist : SEE COMMENT [facility] Comment: HJP, CT(ASCP) CT screening location: [address] ??[address] Interpretation/R esult: Negative for intraepithelial lesion or malignancy. [facility] LMP: NONE GIVEN [facility] Prev. BX: NONE GIVEN [facility] Prev. PAP: NONE GIVEN [facility] SOURCE: None given [facility] Statement Of Adequacy: SEE COMMENT [facility] Comment: Satisfactory for evaluation. Endocervical/transformation zone component present. Age and/or menstrual status not provided 10/23/2020 Natalia Williamson MD LAB PATHOLOGY ORDERABLES Final Result Performing Organization Address [facility] Co de Phone Number [facility] [address] * HPV mRNA E6/E7 (10/23/2020 12:00 AM EDT) HPV nRNA E6/E7 Not Detected Not Detected [facility] Comment: Methodology: Clinical Rehab Liaison-Mediated Amplification This assay detects E6/E7 viral messenger RNA (mRNA) from 14 high-risk HPV types (16,18,31,33,35,39,45,51,52,56,58,59,66,68). ? The analytical performance characteristics of this assay have been determined by [email or web address]. The modifications have not been cleared or approved by the FDA. This assay has been validated pursuant to the CLIA regulations and is used for clinical purposes. ?? 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
--- OUTSIDE RECORDS SUMMARY | 2024-06-10 19:39 | XMS_ITS | Encounter Summary ---
Author Organization [employer] Address [address] [place] [address] Care Team Providers Care Director Of Laboratory Operations Name Role Phone Natalia Williamson MD Primary Care Provider + Reason for Visit * Reason Comments televisit Encounter Details Date Type Department Care Team (Late st Contact Info) Description 06/04/2024 12:00 PM EST Telemedicine [facility] [address], [place] [phone] Natalia Williamson MD [address] [place], [place] [phone] Right ovarian cyst (Primary Dx); Dysmenorrhea; Slow transit constipation Social History Tobacco Use Types Packs/Day Years [...] AM EDT documented as of this encounter Progress Notes * Natalia Williamson MD - 06/04/2024 12:00 PM EST SUBJECTIVE: Denisha Majano is a 34 y.o. year old female who presents for follow up. Denies recent illness, injury, or hospitalization. Patient today on a telehealth visit for fu on pelvic US. Pelvic US on 04/16/24 showed hemorrhagic ovarian cyst, otherwise within normal limits. She continueswith intermittent pelvic pain and recently had intense pain on 06/02/24 and felt nauseous but could not vomit. The pain lasts 1-2 hours and felt she could not talk or move due to the pain. She denies vaginal discharge. Labs on 04/04/24 showed low vitamin D levels, otherwise normal lipids, BMP, A1c, and STI testing. She does not exercise outside often. 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[employer] Patient Active Problem List Diagnosis Disorder of patellofemoral joint Dysmenorrhea Essential hypertension Mild intermittent asthma Lactose intolerance Irritant contact dermatitis Low vision, both eyes Obesity Tear of medial meniscus of knee Acne vulgaris Backache History of abnormal cervical Papanicolaou smear Back muscle spasm Lichen nitidus Encounter for preventive health examination COVID-19 Dental plaque Dental caries Idiopathic intracranial hypertension Chronic nonintractable headache Pelvic pain Ovarian cyst, complex Right ovarian cyst Slow transit constipation Family History Problem Relation Name Age of Onset Hypertension Mother Depression Father Review of Systems Constitutional: Negative for chills, fatigue and fever. HENT: Negative for congestion, ear pain, nosebleeds, rhinorrhea, sinus pressure, sore throat and trouble swallowing. Eyes: Negative for pain and discharge. Respiratory: Negative for cough, chest tightness and shortness of breath. Cardiovascular: Negative for chest pain, palpitations and leg swelling. Gastrointestinal: Positive for nausea. Negative for abdominal pain, blood in stool, constipation and diarrhea. Endocrine: Negative for polydipsia and polyuria. Genitourinary: Positive for pelvic pain. Negative for dysuria, frequency, genital sores and vaginaldischarge. Musculoskeletal: Negative for back pain and neck pain. Skin: Negative for rash. Allergic/Immunologic: Negative for environmental allergies. Neurological: Negative for dizziness, seizures, weakness, light-headedness and headaches. Hematological: Negative for adenopathy. Psychiatric/Behavioral: Negative for agitation, behavioral problems, self-injury and suicidal ideas. OBJECTIVE: There were no vitals filed for this visit. Physical Exam Problem List Items Addressed This Visit Right ovarian cyst - Primary Unclear if it is a dermoid versus physiological cyst, needs FU pelvic US. Pt referred to [facility]. Take Naproxen PRN pain and go to ED or WIC if she develops new symptoms or symptoms do not improve. FU with me in 6-8 weeks. Dysmenorrhea Most likely related to ovarian cyst, see above. Slow transit constipation It could be related to pelvic pain versus regular constipation. See above, start Colace BID. Follow Up: Current Outpatient Medications on File Prior to Visit Medication Sig Dispense Refill albuterol (2.5 MG/3ML) 0.083% nebulizer solution Take 3 mL by nebulization every 6 (six) hours if needed for wheezing. 75 mL 1 albuterol (Ventolin HFA) 108 (90 Base) MCG/ACT inhaler INHALE 2 PUFFS BY MOUTH EVERY 4 HOURS NEEDED FOR WHEEZE 18 g 1 benzoyl peroxide (Benzac AC) 10 % external wash Apply topically 1 (one) time each day. Blood Pressure Monitor kit Use as directed 3x/week 1 kit 0 clobetasol (Temovate) 0.05 % ointment Apply topically every 12 (twelve) hours. 45 g 1 cyclobenzaprine (Flexeril) 10 MG tablet TAKE 1 TABLET BY MOUTH EVERY DAY NEEDED FOR MUSCLE SPASMS 30 tablet 2 fluticasone (Flonase Allergy Relief) 50 MCG/ACT nasal spray Administer 2 sprays into affected nostril(s) 1 (one) time each day. fluticasone furoate (Arnuity Ellipta) 200 MCG/ACT inhaler INHALE 1 PUFF BY MOUTH ONCE A DAY. RINSE MOUTH AFTER USE. 1 each 11 ketoconazole (NIZOral) 2 % shampoo APPLY TO SCALP TWICE PER WEEK LEAVE ON 5 MINUTES THEN WASH OFF loratadine (Claritin) 10 MG tablet TAKE 1 TABLET BY MOUTH EVERY DAY IN THE MORNING 90 tablet 1 Misc. Devices (Pulse Oximeter For Finger) misc To use every 4 hours. Call the office if O2Sat < 90% 1 each 0 sodium chloride (Venedocia) 0.65 % nasal spray 1-2 spray on each nostril every 2-3 hours as needed for nasal congestion tacrolimus (Protopic) 0.1 % ointment APPLY TO FACE TWICE A DAY NEEDED FLARES. topiramate (Topamax) 25 MG tablet Take 25 mg by mouth 2 times daily. tretinoin (Retin-A) 0.05 % cream Apply topically at bed time. [DISCONTINUED] naproxen (Naprosyn) 500 MG tablet TAKE 1 TABLET BY MOUTH TWICE A DAY 60 tablet 0 No current facility-administered medications on file prior to visit. I, Cuca Avila, am serving as a scribe to document services personally performed by Dr. Natalia Williamson, based on the patient's response to questions by provider and provider's statements to me. * Tess Frey MA - 06/04/2024 12:00 PM EST [place] [facility] [place] made aware and agreed with appt. documented in this encounter Miscellaneous Notes * Assessment & Plan Note - Cuca Avila - 06/04/2024 12:57 PM ESTAssociated Problem(s): Slow transit constipation It could be related to pelvic pain versus regular constipation. See above, start Colace BID. * Assessment & Plan Note - Cuca Avila - 06/04/2024 12:57 PM ESTAssociated Problem(s): Dysmenorrhea Most likely related to ovarian cyst, see above. * Assessment & Plan Note - Cuca Avila - 06/04/2024 12:56 PM ESTAssociated Problem(s): Right ovarian cyst Unclear if it is a dermoid versus physiological cyst, needs FU pelvic US. Pt referred to [facility]. Take Naproxen PRN pain and go to ED or WIC if she develops new symptoms or symptoms do not improve. FU with me in 6-8 weeks. documented in this encounter Plan of Treatment Upcoming Encounters Date Type Department Care Team (Late st Contact Info) Description 08/01/2024 11:30 AM EDT Office Visit [facility] [address] [place] [address] Natalia Williamson MD [address] [place] [address] 09/09/2024 3:00 PM EDT Office Visit [facility] [address] [place] [address] Junior, Melita, OD [address] [place] [address] 11/20/2024 3:00 PM EDT Office Visit [facility] ADULT DENT[facility] [address] [place] [address] America García documented as of this encounter Visit Diagnoses Diagnosis Right ovarian cyst- Primary Other and unspecified ovarian cyst Dysmenorrhea Slow transit constipation documented in this encounter Care Teams Director Of Laboratory Operations Relationship Specialty Start Date End Date Natalia Williamson MD [address] [place] [phone] PCP - General Internal Medicine 02/27/23 documented as of this encounter
== END 2024-06-10 15:47 | disposition home or self-care (01) ==
LOC: HO.US 15:46
PROVIDERS: PCP Internal Medicine; Visit Provider Internal Medicine
DX: N83.299 Other ovarian cyst, unspecified side (principal)
CPT/HCPCS: 76830; 76856

== ENCOUNTER → 2024-06-10 16:01 | Outpatient (BNV) | payer MEDICAID, SELFPAY | PROVIDERS: PCP Internal Medicine; Visit Provider Radiology Diagnostic Radiology | DX: N83.291 Other ovarian cyst, right side (principal) | CPT/HCPCS: 76830; 76856 ==

== ENCOUNTER 2024-11-14 15:45 | Outpatient (AMB) | payer MEDICAID, SELFPAY ==
--- NOTE | 2024-11-14 15:47 | A.OFFVIS_ITS ---
Intake Visit Reasons: Migranes Allergies lactose Allergy (Verified 08/28/21 16:40) Diarrhea HPI Comments Details: 34 yo woman with obesity, s/p tubal ligation, chronic headaches, papilledema detected in 2019, MRI brain in 2019 revealed on punctate right parietal hyperintensity but otherwise no significant abnormality, LP in 2019 revealed CSF opening pressure of 30-31 cm, and OP of 23 cm in May. She was feeling better and stated that couple of months ago she had her I examination and her I situation was better. She was not having any significant symptoms. No headaches. [facility] Medical History Asthma Review of Systems Const Details: Constitutional:?No fever, chills, fatigue, weight loss, or night sweats. HEENT:?No headache, vision changes, hearing loss, nasal congestion, sore throat. Neurological:?No dizziness, syncope, seizures, numbness, tingling, weakness, tremors, memory loss. Psychiatric:?No anxiety, depression, mood swings, sleep disturbance, or hallucinations. Endocrine:?No heat/cold intolerance, polydipsia, polyuria, or hair/skin changes. Hematologic/Lymphatic:?No easy bruising, bleeding, or lymphadenopathy. Integumentary (Skin):?No rash, lesions, itching, or color changes. ? Physical Exam Neuro Other: Mental Status: Alert and oriented to person, place, and time. Normal attention. Normal spontaneous speech, fluency, and comprehension. No obvious issues with mood and memory. Affect is appropriate. Cranial Nerves: CN II: Visual simpson full to confrontation, visual acuity intact. CN III, IV, : Pupils equal, round, reactive to light and accommodation. Extraocular movements are normal. CN V: Facial sensation is normal. CN VII: Facial movements symmetrical. CN VIII: Hearing intact to bedside conversation is normal. CN IX, X: Palate elevates symmetrically. CN XI: Shoulder shrug and head turn symmetrical. CN XII: Tongue midline without atrophy or fasciculations. Motor: Bulk and tone normal in all extremities. No significant muscle weakness in arms and legs. No drift. Reflexes: Deep tendon reflexes 2+ and symmetric. Plantar response down-going bilaterally. Coordination: Fgomda-oz-lsuf and vnmg-dq-rytq testing normal. No dysmetria. Gait and Station: No obvious gait abnormality. No ataxia or instability. Sensory: Intact to light touch, pinprick, and vibration. Romberg is negative. Extrapyramidal: Full facial expressions and blinking. No rigidity. Movements are appropriate with no tremor or abnormality. Speech: Normal; no dysarthria or tremor. Assessment & Plan Assessment & Plan (1) Idiopathic intracranial hypertension: Comment: LP at [facility] in May 2023: OP 23 cm, WBCs 1, RBCs 0, Glu 61, Pro 19.2 LP at [facility] in October 2019: OP 30-31cm, RBCs 0, WBCs 0, Pro 17, Glu 59 MRI brain at [facility] in Mar 2019 WWO: one punctate right parietal WM hyperintensity, otherwise ok. Code(s): G93.2 - Benign intracranial hypertension Category: Medical (2) Migraine: Code(s): G43.909 - Migraine, unspecified, not intractable, without status migrainosus Category: Medical Qualifiers: Migraine type: migraine (< 15 days per month) without aura Status m igrainosus presence: without status migrainosus Intractability: not intractable Qualified Code(s): G43.009 - Migraine without aura, not intractable, without status migrainosus (3) Papilledema: Code(s): H47.10 - Unspecified papilledema Category: Medical Plan At this time she was asymptomatic, not having any headaches, and recent eye examination revealed better picture. She was not on any medicine. My recommen dation would be to continue to try to lose more weight. I would keep a follow- up in 6 magda time or as needed. Coding Level of Care Code Est Pt Level 4 (61157) Diagnoses Idiopathic intracranial hypertension G93.2 Migraine without aura and without status migrainosus, not intractable G43.009 Migraine type: migraine (< 15 days per month) without aura Status migrainosus presence: without status migrainosus Intractability: not intractable Papilledema H47.10
--- OUTSIDE RECORDS SUMMARY | 2024-11-14 15:47 | XMS_ITS | Encounter Summary ---
Author Organization [employer] Address [address] [place] [address] 7 [place] [address] Care Team Providers Care Summer Law Clerk Name Role Phone Barb Tubbs Primary Care Provider [phone] Barb Tubbs Primary Care Provider [phone] Natalia Williamson MD Primary Care Provider + Encounter Details Date Type Department Care Team (Latest Contact Info) Description 05/27/2020 Abstract [facility] CONVERSIONS Dental, Provider, DDS Social History [...] Care Team (Late st Contact Info) Description 11/20/2024 3:00 PM EDT Office Visit [facility] ADULT DENTAL [address] [place], [place] [phone] Arin Doshi [address] [place] [address] [phone] 11/28/2024 9:00 AM EDT Telemedicine [facility] MEDICINE [address] [place], [place] [phone] Natalia Williamson MD [address] [place], [place] [phone] 12/09/2024 9:30 AM EDT Office Visit [facility] ADULT DENTAL [address] [place] [address] Anuel Jain, DDS [address] [place] [address] 02/26/2025 3:00 PM EDT Office Visit [facility] OPTOMETRY [address] [place] [address] Melita Pacheco, OD [address] [place] [address] documented as of this encounter Visit Diagnoses Not on filedocumented in this encounter Care Teams Summer Law Clerk Relationship Specialty Start Date End Date Barb Tubbs FNP [address] [place] [address] PCP - General Family Medicine 07/15/22 07/17/22 Barb Tubbs FNP [address] [place] [address] PCP - General Family Medicine 07/18/22 02/26/23 Natalia Williamson MD [address] [place] [address] PCP - General Internal Medicine 02/27/23 documented as of this encounter
== END 2024-11-14 15:59 | disposition home or self-care (01) ==
PROVIDERS: PCP Internal Medicine; Visit Provider Psychiatry & Neurology Neurology
DX: G93.2 Benign intracranial hypertension (principal); G43.009 Migraine without aura, not intractable, without status migrainosus; H47.10 Unspecified papilledema
CPT/HCPCS: 99212

== ENCOUNTER → 2024-11-14 15:45 | Outpatient (BNVA) | payer MEDICAID, SELFPAY | PROVIDERS: PCP Internal Medicine; Visit Provider Psychiatry & Neurology Neurology | DX: G93.2 Benign intracranial hypertension (principal); G43.009 Migraine without aura, not intractable, without status migrainosus; H47.10 Unspecified papilledema | CPT/HCPCS: 99212 ==

== ENCOUNTER 2025-04-30 11:22 | Outpatient (REF) | payer OTHER, SELFPAY ==
--- OUTSIDE RECORDS SUMMARY | 2025-04-30 10:30 | XMS_ITS | Encounter Summary ---
Author Organization [employer] Address [address] [place] [address] Care Team Providers Care Mine Wirer Name Role Phone Natalia Williamson MD Primary Care Provider + Reason for Visit * Reason Comments Physical Encounter Details Date Type Department Care Team ([facility] st Contact Info) Description 04/30/2025 10:30 AM EST Office Visit [facility] MEDICINE [address] [place], [place] [phone] Natalia Williamson MD [address] [place], [place] [phone] Encounter for preventive health examination (Primary Dx); Screen for STD (sexually transmitted disease); Mild intermittent asthma without complication Social History Tobacco Use Types Packs/Day Years Used Date Smoking Tobacco: Never Passive Smoke Exposure: Never Smokeless Tobacco: Never Tobacco Cessation:Counseling Given: Not Answered Alcohol Use Standard Drinks/Week Comments Never 0 (1 standard drink = 0.6 oz pur e alcohol) Depression Answer Date Recorded Patient Health Questionnaire-9 Score 0 04/30/2025 Patient Health Questionnaire-9 Score 0 04/30/2025 Last PHQ-9: Questionnaire Data Not on file 1 07/01/2024 Housing Stability Answer Date Recorded What is your housing situation today? I have romy carlson 04/21/[address] you li ve. Do you have problems with any of the following? None of the above 04/21/2025 Food Insecurity Answer Date Recorded Within the past 12 months, y ou worried that your food would run out before you got money to buy more: Never True 04/21/2025 Within the past 12 months,th e food you bought just didn't last and you didn't have enough money to get more: Never True 12/2024 Transportation Answer Date Recorded In the past 12 months, has l ack of transportation kept you from medical appts, meetings, work or from getting things needed for daily living? No 04/21/2025 Utilities Answer Date Recorded In the past 12 months, has t he electric, gas, oil or water company threatened to shut off services in your home? No 04/21/2025 Depression Answer Date Recorded Patient Health Questionnaire-2 Score 0 04/30/2025 Internet Access Answer Date Recorded Internet Access Q1 Yes 04/21/2025 Internet Access Q2 Not on file 04/21/2025 Comments No Sex and Gender Information Value Date Recorded Sex Assigned at Female 03/14/2022 10:33 AM EDT Legal Sex Female 10:33 AM EDT Gender Identity Female 03/14/2022 10:33 AM EDT Sexual Orientation Straight 03/14/2022 10 :33 AM EDT documented as of this encounter Last Filed Vital Signs Vital Sign Reading Time Taken Comments Blood Pressure 134/96 04/30/2025 10:53 AM EST Pulse 76 04/30/2025 10:53 AM EST Temperature 35.7 C (96.2 F) 04/30/2025 10:53 AM EST Respiratory Rate 17 04/30/2025 10:53 AM EST Oxygen Saturation 97% 04/30/2025 10:53 AM EST Inhaled Oxygen Concentration - - Weight 116 kg (256 lb 6.4 oz) 04/30/2025 10:53 A M EST Height - - Body Mass Index 45.42 04/04/2024 9:12 AM EST documented in this encounter Functional Status * Over the past 2 weeks, how often have you been bothered by any of the following problems? Question Answer Date of Assessment Author Patient Health Questionnaire -2 Score 0 04/30/2025 12:19 PM EST Jackelin Quiroz MA * Little interest or pleasure in doing things Answer Date of Assessment Author Not at all 04/30/2025 12:19 PM EST Jackelin Quiroz MA * Feeling down, depressed, or hopeless Answer Date of Assessment Author Not at all 04/30/2025 12:19 PM EST Jackelin Quiroz MA * Trouble falling or staying asleep, or sleeping too much Answer Date of Assessment Author Not at all 04/30/2025 12:19 PM Jackelin Ramos MA * Feeling tired or having little energy Answer Date of Assessment Author Not at all 04/30/2025 12:19 PM Jackelin Ramos MA * Poor appetite or overeating Answer Date of Assessment Author Not at all 04/30/2025 12:19 PM Jackelin Ramos MA * Feeling bad about yourself - or that you are a failure or have let yourself or your family down Answer Date of Assessment Author Not at all 04/30/2025 12:19 PM Jackelin Ramos MA * Trouble concentrating on things, such as reading the newspaper or watching television Answer Date of Assessment Author Not at all 04/30/2025 12:19 PM Jackelin Ramos MA * Moving or speaking so slowly that other people could have noticed? Or the opposite - being so fidgety or restless that you have been moving around a lot more than usual. Answer Date of Assessment Author Not at all 04/30/2025 12:19 PM Jackelin Ramos MA * Thoughts that you would be better off or hurting yourself in some way Answer Date of Assessment Author Not at all 04/30/2025 12:19 PM Jackelin Ramos MA * Patient Health Questionnaire-9 Score Answer Date of Assessment Author 0 04/30/2025 12:19 PM Jackelin Ramos MA * Over the last 2 weeks, how often have you been bothered by any of the following problems? Question Answer Date of Assessment Author Feeling nervous, anxious, or on edge 0 04/30/2025 12:19 PM Jackelin Ramos MA Not being able to stop or co ntrol worrying 0 04/30/2025 12:19 PM Jackelin Ramos MA Worrying too much about diff erent things 0 04/30/2025 12:19 PM Jackelin Ramos MA Trouble relaxing 0 04/30/2025 12:19 PM Jackelin Ramos MA Being so restless that it is hard to sit still 0 04/30/2025 12:19 PM Jackelin Ramos MA Becoming easily annoyed or irritable 0 04/30/2025 12:19 PM Jackelin Ramos MA Feeling afraid as if somethi ng awful might happen 0 04/30/2025 12:19 PM Jackelin Ramos MA ROXIE-7 Total Score 0 04/30/2025 12:19 PM Jackelin Ramos MA documented as of this encounter Progress Notes * Natalia Williamson MD - 04/30/2025 10:30 AM EST SUBJECTIVE: Denisha Majano is a 35 y.o. year old female who presents for routine physical exam. Denies recent illness, injury, or hospitalization. 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 -PAP smear: 2020 NIL/Neg HPV -Ophthalmology: 03/14/25 -Labs: 03/2024 -Dental visit: 04/03/25 -Adult IZ: PCV-20 2022, Covid 2022, Influenza 2022, Hepatitis B 2022 x 3 2021 neg immunity, TD 2018 -Safety: Feels safe -Intimate Part Violence Screening: Neg -In Relationship: Yes -STI screenin Neg -Hx STI/concern?Yes -Not Interested in PrEP -Lives with 17yo daughter Acute Concerns: Wants STI testing. Has anew AMAB partner few months ago Social History Social History Narrative Lives with her and 15 yo daughter on a single family home Works FT as [employer] Problem List[1] Family History[2] Review of Systems Constitutional: Negative for chills, fatigue and fever. HENT: Negative for congestion, ear pain, nosebleeds, rhinorrhea, sinus pressure, sore throat and trouble swallowing. Eyes: Negative for pain and discharge. Respiratory: Negative for cough, chest tightness and shortness of breath. Cardiovascular: Negative for chest pain, palpitations and leg swelling. Gastrointestinal: Negative for abdominal pain, blood in stool, constipation, diarrhea and nausea. Endocrine: Negative for polydipsia and polyuria. Genitourinary: Negative for dysuria, frequency, genital sores, pelvic pain and vaginal discharge. Musculoskeletal: Negative for back pain and neck pain. Skin: Negative for rash. Allergic/Immunologic: Negative for environmental allergies. Neurological: Negative for dizziness, seizures, weakness, light-headedness and headaches. Hematological: Negative for adenopathy. Psychiatric/Behavioral: Negative for agitation, behavioral problems, self-injury and suicidal ideas. OBJECTIVE: Vitals: 12/17/25 1053 BP: (!) 134/96 Pulse: 76 Resp: 17 Temp: 96.2 ??F (35.7 ??C) SpO2: 97% Physical Exam HENT: Right Ear: Tympanic membrane and ear canal normal. Left Ear: Tympanic membrane and ear canal normal. Mouth/Throat: Mouth: Mucous membranes are moist. Pharynx: No oropharyngeal exudate or posterior oropharyngeal erythema. Eyes: Pupils: Pupils are equal, round, and reactive to light. Cardiovascular: Rate and Rhythm: Regular rhythm. Pulses: Normal pulses. Heart sounds: Normal heart sounds. No murmur heard. Pulmonary: Breath sounds: Normal breath sounds. Abdominal: General: Bowel sounds are normal. Palpations: Abdomen is soft. Tenderness: There is no abdominal tenderness. Musculoskeletal: General: Normal range of motion. Cervical back: Neck supple. Skin: General: Skin is warm. Neurological: General: No focal deficit present. Mental Status: She is alert and oriented to person, place, and time. Psychiatric: Mood and Affect: Mood normal. Behavior: Behavior normal. Problem List Items Addressed This Visit Encounter for preventive health examination - Primary Discussed with patient re increase fresh fruit and vegetable intake. Counseled re moderate exercise as tolerated, up to 20min/d Patient feels safe at home. PAP smear is up to date, next one due on 2025 Eye exam: up to date, next one due on 02/2027 Lipids/FBS: up to date, next one due on 2026 Vaccinations: Declined covid vax, will check Hep B titers. Dental visit: UTD Relevant Orders T-SPOT??.TB Vitamin D, 25-Hydroxy, Total, Immunoassay Screen for STD (sexually transmitted disease) Advised re use of condom Check STIs Relevant Orders HIV-1/2 Antigen and Antibodies, Fourth Generation, with Reflexes Hepatitis Panel, General Syphilis Screen Chlamydia/Trichomonas/Neisseria gonorrhoeae, PCR, Urine Mild intermittent asthma Is controlled. Doing well on Albuterol prn. Recommended to restart Arnuity if she starts getting more than 1 exacerbation per month. inh BID. Declined Influenza Immunization. She is a non smoker. Declined covid booster, other adult vax are up to date. Relevant Orders T-SPOT??.TB This note was drafted using Asterisk ([employer]) technology. The patient/patient's guardian has been informed and has consented to the use of this technology: Yes No follow-ups on file. Medications Ordered Prior to Encounter[3] [1] Patient Active Problem List Diagnosis Disorder of patellofemoral joint Dysmenorrhea Essential hypertension Mild intermittent asthma Lactose intolerance Irritant contact dermatitis Low vision, both eyes Obesity Tear of medial meniscus of knee Acne vulgaris Backache History of abnormal cervical Papanicolaou smear Back muscle spasm Lichen nitidus Encounter for preventive health examination COVID-19 Dental calculus Dental caries Idiopathic intracranial hypertension Chronic nonintractable headache Ovarian cyst, complex Right ovarian cyst Slow transit constipation Pain, dental Open fracture of tooth Fractured dental [facility] with loss of material Screen for STD (sexually transmitted disease) [2] Family History Problem Relation Name Age of Onset Hypertension Mother Depression Father [3] Current Outpatient Medications on File Prior to Visit Medication Sig Dispense Refill acetaminophen (Tylenol 8 Hour) 650 MG ER tablet Take 1 tablet (650 mg) by mouth every 8 (eight) hours if needed for mild pain. Do not crush, chew, or split. 30 tablet 0 albuterol (2.5 MG/3ML) 0.083% nebulizer solution Take 3 mL by nebulization every 6 (six) hours if needed for wheezing. 75 mL 1 albuterol (Ventolin HFA) 108 (90 Base) MCG/ACT inhaler INHALE 2 PUFFS BY MOUTH EVERY 4 HOURS NEEDED FOR WHEEZING 18 g 1 benzoyl peroxide (Benzac AC) 10 % external wash Apply topically 1 (one) time each day. Blood Pressure Monitor kit Use as directed 3x/week 1 kit 0 clobetasol (Temovate) 0.05 % cream APPLY TO ARMS TWICE A DAY NEEDED FOR FLARES, DECREASE USE SYMPTOMS IMPROVE cyclobenzaprine (Flexeril) 10 MG tablet TAKE 1 TABLET BY MOUTH EVERY DAY NEEDED FOR MUSCLE SPASMS 30 tablet 2 Fluocinolone Acetonide Scalp 0.01 % oil APPLY TO SCALP DAILY AT BEDTIME fluticasone (Flonase Allergy Relief) 50 MCG/ACT nasal spray Administer 2 sprays into affected nostril(s) 1 (one) time each day. fluticasone furoate (Arnuity Ellipta) 200 MCG/ACT inhaler INHALE 1 PUFF BY MOUTH ONCE A DAY. RINSE MOUTH AFTER USE. 1 each 11 ibuprofen 600 MG tablet Take 1 tablet (600 mg) by mouth 3 times daily. 30 tablet 0 ketoconazole (NIZOral) 2 % shampoo Apply topically 2 (two) times a week. APPLY TO SCALP TWICE PER WEEK LEAVE ON 5 MINUTES THEN WASH OFF 120 mL 3 loratadine (Claritin) 10 MG tablet TAKE 1 TABLET BY MOUTH EVERY DAY IN THE MORNING 90 tablet 1 Misc. Devices (Pulse Oximeter For Finger) misc To use every 4 hours. Call the office if O2Sat < 90% 1 each 0 naproxen (Naprosyn) 500 MG tablet Take 1 tablet (500 mg) by mouth if needed in the morning and at bedtime for mild pain or moderate pain. 60 tablet 5 sodium chloride (Dakota) 0.65 % nasal spray 1-2 spray on each nostril every 2-3 hours as needed for nasal congestion Stool Softener 100 MG capsule TAKE 1 CAPSULE BY MOUTH TWICE A DAY 180 capsule 1 tacrolimus (Protopic) 0.1 % ointment APPLY TO FACE TWICE A DAY NEEDED FLARES. topiramate (Topamax) 25 MG tablet Take 25 mg by mouth 2 times daily. tretinoin (Retin-A) 0.05 % cream Apply topically at bed time. [DISCONTINUED] Asmanex HFA 200 MCG/ACT aerosol Inhale every 12 (twelve) hours. No current facility-administered medications on file prior to visit. documented in this encounter Miscellaneous Notes * Assessment & Plan Note - Natalia Williamson MD - 04/30/2025 2:38 PM EST Associated Problem(s): Mild intermittent asthma Is controlled. Doing well on Albuterol prn. Recommended to restart Arnuity if she starts getting more than 1 exacerbation per month. inh BID. Declined Influenza Immunization. She is a non smoker. Declined covid booster, other adult vax are up to date. * Assessment & Plan Note - Natalia Williamson MD - 04/30/2025 2:37 PM EST Associated Problem(s): Screen for STD (sexually transmitted disease) Advised re use of condom Check STIs * Assessment & Plan Note - Natalia Williamson MD - 04/30/2025 2:37 PM EST Associated Problem(s): Encounter for preventive health examination Discussed with patient re increase fresh fruit and vegetable intake. Counseled re moderate exercise as tolerated, up to 20min/d Patient feels safe at home. PAP smear is up to date, next one due on 2025 Eye exam: up to date, next one due on 02/2027 Lipids/FBS: up to date, next one due on 2026 Vaccinations: Declined covid vax, will check Hep B titers. Dental visit: UTD documented in this encounter Plan of Treatment Upcoming Encounters Date Type Department Care Team (Late st Contact Info) Description 05/05/2025 8:00 AM EST Office Visit [facility] ADULT DENTAL [address] [place] [address] KandruKyml, DDS [address] [place] [address] 05/30/2025 3:00 PM EST Office Visit [facility] ADULT DENTAL [address] [place] [address] Patel, Radha [address] [place] [address] 08/27/2025 3:00 PM EDT Office Visit [facility] OPTOMETRY [address] [place] [address] Junior, Melita, OD [address] [place] [address] Scheduled Orders Name Type Priority Associated Diagnoses Orde r Schedule T-SPOT .TB Lab Routine Encounter for preventive health examination Mild intermittent asthma without complication Expected: 04/30/2025 (Approximate), Expires: 04/30/2026 HIV-1/2 Antigen and Antibodies, Fourth Generation, with Reflexes Lab Routine Screen for STD (sexually transmitted disease) Expected: 04/30/2025 (Approximate), Expires: 04/30/2026 Hepatitis Panel, General Lab Routine Screen for STD (sexually transmitted disease) Expected: 04/30/2025 (Approximate), Expires: 04/30/2026 Syphilis Screen Lab Routine Screen for STD (sexually transmitted disease) Expected: 04/30/2025 (Approximate), Expires: 04/30/2026 Chlamydia/Trichomonas/Nei sseria gonorrhoeae, PCR, Urine Lab Routine Screen for STD (sexually transmitted disease) Expected: 04/30/2025 (Approximate), Expires: 04/30/2026 Vitamin D, 25-Hydroxy, Total, Immunoassay Lab Routine Encounter for preventive health examination Expected: 04/30/2025 (Approximate), Expires: 04/30/2026 documented as of this encounter Visit Diagnoses Diagnosis Encounter for preventive health examination- Primary Screen for STD (sexually transmitted disease) Screening examination for venereal disease Mild intermittent asthma without complication documented in this encounter Additional Health Concerns Assessment Noted Time PHQ-9 Depression Total Score: 0 04/30/20 25 12:19 PM EST documented as of this encounter Care Teams Mine Wirer Relationship Specialty Start Date End Date Natalia Williamson MD [address] [place] [id number] PCP - General Internal Medicine 02/27/23 documented as of this encounter
--- OUTSIDE RECORDS SUMMARY | 2025-04-30 15:06 | XMS_ITS | Encounter Summary ---
Author Organization [employer] Address [address] [place] [address] Care Team Providers Care Environmental Solutions Engineer Name Role Phone Natalia Williamson MD Primary Care Provider + Reason for Visit * Reason Onset Date Comments Chart Prep 04/29/2025 Encounter Details Date Type Department Care Team ([facility] st Contact Info) Description 04/29/2025 Telephone [facility] MED[facility] [address] [place], [place] [phone] Natalia Williamson MD [address] [place] [address] Chart Prep Social History Tobacco Use Types Packs/Day Years [...] encounter Miscellaneous Notes * Telephone Encounter - Chery Jordan MA - 04/29/2025 12:22 PM EST Chart Prep Labs: done Images: done Referrals: not applicable Vaccines due: Covid and HPV Screenings: LMP and Hep C Screening Overdue care gaps: SBIRT, PHQ-9, ROXIE-7, and Disability screen documented in this encounter Plan of Treatment Upcoming Encounters Date Type Department Care Team (Late st Contact Info) Description 05/05/2025 8:00 AM EST Office Visit [facility] ADULT DENTAL [address] [place] [address] Anuel Jain, DDS [address] [place] [address] 05/30/2025 3:00 PM EST Office Visit [facility] ADULT DENTAL [address] [place] [address] Patel, Radha [address] [place] [address] 08/27/2025 3:00 PM EDT Office Visit [facility] OPTOMETRY [address] [place] [address] JuniorMelita holland OD [address] [place] [address] documented as of this encounter Visit Diagnoses Not on filedocumented in this encounter Care Teams Environmental Solutions Engineer Relationship Specialty Start Date End Date Natalia Williamson MD [address] [place] [address] PCP - General Internal Medicine 02/27/23 documented as of this encounter
--- OUTSIDE RECORDS SUMMARY | 2025-04-30 15:06 | XMS_ITS | Encounter Summary ---
Author Organization [employer] Address [address] [place] [address] Care Team Providers Care Plate Grainer Apprentice Name Role Phone Natalia Williamson MD Primary Care Provider + Reason for Visit * Reason Comments Med Change Request Encounter Details Date Type Department Care Team ([facility] st Contact Info) Description 06/04/2024 Refill [facility] MEDICINE [address] [place], [place] [phone] Natalia Williamson MD [address] [place], [place] [phone] Social History Tobacco Use Types Packs/Day Years [...] the past 12 months, has t he [employer], gas, oil or water [employer] threatened to shut off services in your [...] Description 05/05/2025 8:00 AM EST Office Visit [facility] ADULT DENTAL [address] [place] [address] JuanjodruAnuel, DDS [address] [place] [address] 05/30/2025 3:00 PM EST Office Visit [facility] ADULT DENTAL [address] [place] [address] Patel, Radha [address] [place] [address] 08/27/2025 3:00 PM EDT Office Visit [facility] OPTOMETRY [address] [place] [address] Junior, Melita, OD [address] [place] [address] documented as of this encounter Visit Diagnoses Not on filedocumented in this encounter Care Teams Plate Grainer Apprentice Relationship Specialty Start Date End Date Natalia Williamson MD [address] [place] [address] PCP - General Internal Medicine 02/27/23 documented as of this encounter
--- OUTSIDE RECORDS SUMMARY | 2025-04-30 15:06 | XMS_ITS | Encounter Summary ---
Author Organization [employer] Address [address] [facility] [address] [place] [address] Care Team Providers Care Conference Services Coordinator Name Role Phone Barb Tubbs Primary Care Provider [phone] Barb Tubbs Primary Care Provider [phone] Natalia Williamson MD Primary Care Provider + Encounter Details Date Type Department Care Team (Latest Contact Info) Description 07/04/2018 Abstract [facility] CONVERSIONS Dental, Provider, DDS Social History [...] Care Team ( st Contact Info) Description 05/05/2025 8:00 AM EST Office Visit [facility] ADULT DENTAL [address] [place] [address] Anuel Jain DDS [address] [place] [address] 05/30/2025 3:00 PM EST Office Visit [facility] ADULT DENTAL [address] [place] [address] Radha Sweeney [address] [place] [address] 08/27/2025 3:00 PM EDT Office Visit [facility] OPTOMETRY [address] [place] [address] Melita Pacheco, OD [address] [place] [address] documented as of this encounter Visit Diagnoses Not on filedocumented in this encounter Care Teams Conference Services Coordinator Relationship Specialty Start Date End Date Barb Tubbs FNP [address] [place] [address] PCP - General Family Medicine 07/15/22 07/17/22 Barb Tubbs FNP [address] [place] [address] PCP - General Family Medicine 07/18/22 02/26/23 Natalia Williamson MD [address] [place] [address] PCP - General Internal Medicine 02/27/23 documented as of this encounter
--- OUTSIDE RECORDS SUMMARY | 2025-04-30 15:06 | XMS_ITS | Encounter Summary ---
Author Organization [employer] Address [address] [place] [address] Care Team Providers Care Race Engine Builder Name Role Phone Natalia Williamson MD Primary Care Provider + Reason for Visit * Reason Onset Date Comments Med Refill 05/19/2024 Encounter Details Date Type Department Care Team ([facility] st Contact Info) Description 05/19/2024 Refill [facility] MEDICINE [address] [place], [place] [phone] Natalia Williamson MD [address] [place], [place] [phone] Social History Tobacco Use Types Packs/Day Years [...] Description 05/05/2025 8:00 AM EST Office Visit [facility] ADULT DENTAL [address] [place] [address] KandruAnuel, DDS [address] [place] [address] 05/30/2025 3:00 PM EST Office Visit [facility] ADULT DENTAL [address] [place] [address] Patel, Radha [address] [place] [address] 08/27/2025 3:00 PM EDT Office Visit [facility] OPTOMETRY [address] [place] [address] Junior, Melita, OD [address] [place] [address] documented as of this encounter Visit Diagnoses Not on filedocumented in this encounter Care Teams Race Engine Builder Relationship Specialty Start Date End Date Natalia Williamson MD [address] [place] [address] PCP - General Internal Medicine 02/27/23 documented as of this encounter
--- OUTSIDE RECORDS SUMMARY | 2025-04-30 15:06 | XMS_ITS | Encounter Summary ---
Author Organization [employer] Address [address] [place] [address] Care Team Providers Care Sign Board Erector Name Role Phone Natalia Williamson MD Primary Care Provider + Reason for Visit * Reason Comments Med Change Request Encounter Details Date Type Department Care Team ([facility] st Contact Info) Description 04/17/2024 Refill [facility] MEDICINE [address] [place], [place] [phone] Natalia Williamson MD [address] [place], [place] [phone] Social History Tobacco Use Types Packs/Day Years [...] the past 12 months, has t he [employer], gas, oil or water [employer] threatened to shut off services in your [...] Description 05/05/2025 8:00 AM EST Office Visit [facility] CHC ADULT DENTAL [address] [place] [address] JuanjodruAnuel, DDS [address] [place] [address] 05/30/2025 3:00 PM EST Office Visit [facility] ADULT DENTAL [address] [place] [address] Patel, Radha [address] [place] [address] 08/27/2025 3:00 PM EDT Office Visit [facility] OPTOMETRY [address] [place] [address] Junior, Melita, OD [address] [place] [address] documented as of this encounter Visit Diagnoses Not on filedocumented in this encounter Care Teams Sign Board Erector Relationship Specialty Start Date End Date Natalia Williamson MD [address] [place] [address] PCP - General Internal Medicine 02/27/23 documented as of this encounter
--- OUTSIDE RECORDS SUMMARY | 2025-04-30 15:06 | XMS_ITS | Clinical Summary ---
Author Organization [employer] Address [address] [facility] 7t [place] [address] Care Team Providers Care Community Health Planning Director Name Role Phone Natalia Williamson MD Primary Care Provider + Allergies Active Allergy Reactions Criticality Noted Date Comments Lactose 02/18/2025 Lactose Intolerance (Gi) Diarrhea,Drowsiness Medications benzoyl peroxide (Benzac AC) 10 % external wash Apply topically 1 (one) time each day. 10/22/19 22 Active fluticasone (Flonase Allergy Relief) 50 MCG/ACT nasal spray Administer 2 sprays into affected nostril(s) 1 (one) time each day. 09/22/19 21 Active sodium chloride ([place]) 0.65 % nasal spray 1-2 spray on each nostril every 2-3 hours as needed for nasal congestion 11/03/19 22 Active tretinoin (Retin-A) 0.05 % cream Apply topically at bed time. 02/06/20 21 Active Misc. Devices (Pulse Oximeter For Finger) miscIndications: COVID-19 To use every 4 hours. Call the office if O2Sat < 90% 1 each 03/23/20 23 Active Blood Pressure Monitor kit Use as directed 3x/week 1 kit 03/31/20 23 Active topiramate (Topamax) 25 MG tablet Take 25 mg by mouth 2 times daily. 05/01/20 23 Active tacrolimus (Protopic) 0.1 % ointment APPLY TO FACE TWICE A DAY NEEDED FLARES. 12/13/19 24 Active albuterol (2.5 MG/3ML) 0.083% nebulizer solution Take 3 mL by nebulization every 6 (six) hours if needed for wheezing. 75 mL 1 05/20/19 25 Active fluticasone furoate (Arnuity Ellipta) 200 MCG/ACT inhaler INHALE 1 PUFF BY MOUTH ONCE A DAY. RINSE MOUTH AFTER USE. 1 each 11 05/20/19 25 Active albuterol (Ventolin HFA) 108 (90 Base) MCG/ACT inhalerIndicatio ns:Mild intermittent asthma without complication INHALE 2 PUFFS BY MOUTH EVERY 4 HOURS NEEDED FOR WHEEZING 18 g 1 06/12/19 25 Active cyclobenzaprine (Flexeril) 10 MG tabletIndication s:Back muscle spasm TAKE 1 TABLET BY MOUTH EVERY DAY NEEDED FOR MUSCLE SPASMS 30 tablet 2 08/02/19 25 Active Stool Softener 100 MG capsule TAKE 1 CAPSULE BY MOUTH TWICE A DAY 180 capsule 1 09/20/19 25 Active Fluocinolone Acetonide Scalp 0.01 % oil APPLY TO SCALP DAILY AT BEDTIME 06/18/19 25 Active clobetasol (Temovate) 0.05 % cream APPLY TO ARMS TWICE A DAY NEEDED FOR FLARES, DECREASE USE SYMPTOMS IMPROVE 06/18/19 25 Active acetaminophen (Tylenol 8 Hour) 650 MG ER tablet Take 1 tablet (650 mg) by mouth every 8 (eight) hours if needed for mild pain. Do not crush, chew, or split. 30 tablet 11/08/19 25 Active ibuprofen 600 MG tablet Take 1 tablet (600 mg) by mouth 3 times daily. 30 tablet 11/08/19 25 Active naproxen (Naprosyn) 500 MG tablet Take 1 tablet (500 mg) by mouth if needed in the morning and at bedtime for mild pain or moderate pain. 60 tablet 5 11/29/19 25 Active ketoconazole (NIZOral) 2 % shampoo Apply topically 2 (two) times a week. APPLY TO SCALP TWICE PER WEEK LEAVE ON 5 MINUTES THEN WASH OFF 120 mL 3 12/10/19 25 Active loratadine (Claritin) 10 MG tablet TAKE 1 TABLET BY MOUTH EVERY DAY IN THE MORNING 90 tablet 1 12/27/19 25 Active Asmanex HFA 200 MCG/ACT aerosol Inhale every 12 (twelve) hours. 09/19/19 25 025 Discontin ued(Non-c ompliance ) Active Problems Problem Noted Date Diagnosed Date Screen for STD (sexually transmitted disease) Assessment & Plan (04/30/2025 2:37 PM EST): Advised re use of condom Check STIs Fractured dental latter day with loss of materi al 11/20/2024 Pain, dental 11/07/2024 Open fracture of tooth 11/07/2024 Right ovarian cyst 06/04/2024 Assessment & Plan (06/04/2024 12:56 PM EST): Unclear if it is a dermoid versus physiological cyst, needs FU pelvic US. Pt referred to [facility]. Take Naproxen PRN pain and go to ED or WIC if she develops new symptoms or symptoms do not improve. FU with me in 6-8 weeks. Slow transit constipation 06/04/2024 Assessment & Plan (06/04/2024 12:57 PM EST): It could be related to pelvic pain versus regular constipation. See above, start Colace BID. Ovarian cyst, complex 06/03/2024 Idiopathic intracranial hypertension 01/30/2024 Overview (01/30/2024): FU by Dr Moises Mederos with opening LP pressure of 30-31 MRI on 2018 showed punctuate right parietal hyperintensity Chronic nonintractable headache 01/30/2024 Dental caries 06/20/2023 Dental calculus 04/26/2023 Encounter for preventive health examination 03/15 Assessment & Plan (04/30/2025 2:37 PM EST): Discussed with patient re increase fresh [...] check Hep B titers. Dental visit: UTD Assessment & Plan (04/04/2024 9:37 AM EST): [...] visit overdue, counseled to make appointment at [facility] dental. Info on dental clinic provided [...] inj prn. Dysmenorrhea 04/06/2022 Assessment & Plan (11/28/2024 9:06 AM EDT): Related to ovulation/physiological cysts. Pelvic ultrasound May 2024 was normal. Continue naproxen as needed after onset of symptoms, reminded to keep track of menstrual bleeding and pain symptoms. Advised to call back as needed if symptoms do not resolve with NSAIDs, she can come to the walk-in center. Follow-up in 6 months, she is due for Pap smear in 2025. Assessment & Plan (08/01/2024 1:58 PM EDT): Pt seems to be having physiological cyst, last pelvic US was normal. She will continue to keep track of ovulation and will take Naproxen during time of ovulation and menstruation and will fu with me in 4 months. Assessment & Plan (08/01/2024 11:28 AM EDT): >>ASSESSMENT AND PLAN FOR PELVIC PAIN WRITTEN ON 04/04/2024 9:34 AM BY LYNN HART Rule out ovarian cyst, fibroid or STI. Order ultrasound and vaginal swab. Assessment & Plan (06/04/2024 12:57 PM EST): [...] Mild intermittent asthma 07/24/2017 Assessment & Plan (04/30/2025 2:40 PM EST): Is controlled. Doing well on Albuterol prn. Recommended to restart Arnuity if she starts getting more than 1 exacerbation per month. inh BID. Declined Influenza Immunization. She is a non smoker. Declined covid booster, other adult vax are up to date. Assessment & Plan (04/04/2024 9:35 AM EST): [...] life style modifications, diet and referral to crm marketing specialist. Recommended to decrease soda and sugary beverage consumption, increase protein intake with meals (at least 1 portion of protein with each meal) to assist with satiety, increase dietary fiber Recommended at least 150 min/week of moderate intensity exercise. History of abnormal cervical Papanicolaou smear 07/24/2017 Assessment & Plan (11/28/2024 9:06 AM EDT): Pap due on 2025 Assessment & Plan (10/23/2023 4:50 PM EDT): Her most recent PAPs (2015 and 2020) are normal, Next PAP due on 2025. No PAP needed today. Assessment & Plan (08/31/2023 2:23 PM EDT): Last PAP on 2020 was normal (NIL/Neg HPV). FU PAP on 2025 Resolved Problems Problem Noted Date Diagnosed Date Resolved Date Elevated blood pressure reading 04/06/2022 05/22/2023 Pain in female pelvis 04/06/20222023 Initial patient encounter 04/06/2022 Adjustment disorder 08/28/2018 05/22/19 24 Diarrhea 08/28/2018 05/22/2023 Chronic low back pain 07/24/20172023 Encounters Date Type Department Care Team Description 04/30/2025 10:30 AM EST Office Visit [facility] [address] [place] [phone] Natalia Williamson MD Encounter for preventive health examination (Primary Dx); Screen for STD (sexually transmitted disease); Mild intermittent asthma without complication 04/30/2025 Travel 04/29/2025 Telephone [facility] [address] [place] [phone] Natalia Williamson MD Chart Prep 04/21/2025 3:30 PM EST Office Visit [facility] [address] [place], [place] [phone] Bandar Mortensen DDS 04/21/2025 Patient Outreach [facility] [address] [place], [place] [phone] Natalia Williamson MD Pre-visit Planning (SDOH screening negative and tobacco screening negative) 04/03/2025 2:00 PM EST Office Visit [facility] [address] [place] [address] Amy Mcmillan, DDS Full coverage crown needed for root canal-treated tooth (Primary Dx) 03/17/2025 2:30 PM EST Office Visit [facility] [address] [place] [address] Baugh-HindsCamposAmy, DDS Open fracture of tooth, initial encounter (Primary Dx); Full coverage crown needed for root canal-treated tooth 03/12/[address] [address] Natalia Williamson MD chart prep 03/11/[address] [address] Natalia Williamson MD Nurse Triage 02/26/2025 3:00 PM EDT Office Visit [facility] [address] [place] [phone] Junior, Melita, OD Papilledema associated with increased intracranial pressure (Primary Dx); White without pressure of peripheral retina of both eyes; Emmetropia 02/26/2025 Travel 02/25/2025 Telephone [facility] [address] [place] [address] Carolina, Valeriy 02/25/2025 Telephone [facility] [address] [place] [address] Carolina, Valeriy 02/20/2025 11:00 AM EDT Office Visit [facility] [address] [place] [address] Baugh-HindsCamposAmy, DDS Secondary dental caries (Primary Dx) 02/18/2025 11:30 AM EDT Office Visit [facility] [address] [place] [address] Baugh-Hinds Amy, DDS Symptomatic periapical periodontitis (Primary Dx) 02/18/2025 Telephone [facility] [address] [place] [address] Baugh-Hinds Amy, DDS Dr. Hinds follow up dental pain RCT Kandru from Last 3 Months Immunizations Immunization Administration Dates Next Due Hep B, Unspecified 02/17/2002,03/10/1998 Hep B, adult 07/01/2022, 2,03/11/2022,2018,12/19/1996 Influenza injectable quadriv alent preservative free 03/08/2023,02/10/2022,02/15/2021,2018,07/09/2018 Influenza, High Dose Seasona l, Preservative Free 03/28/2017 Influenza, Injectable, MDCK, preservative free 01/31/2025,01/19/2024 MMR 04/15/2022,03/11/2022,08/28/2018 Pfizer Covid-19 Vaccine 12+ 07/14/2020, 1 Pfizer Covid-19 Vaccine 12+ Bivalent 02/14/2022 Pneumococcal [...] Q2 Not on file 04/21/2025 Comments No Intention Date Recorded No desire to become (finding) 0 11/28/2024 Sex and Gender Information Value Date Recorded [...] oz) 04/30/2025 10:53 A M EST Height 160 cm (5' 3 ) 04/04/2024 9:12 AM EST Body Mass Index 45.42 04/04/2024 9:12 AM EST Plan of Treatment Upcoming Encounters Date Type Department Care Team (Late st Contact Info) Description 05/05/2025 8:00 AM EST Office Visit [facility] [address] [place] [address] Anuel Jain DDS [address] [place] [address] 05/30/2025 3:00 PM EST Office Visit [facility] [address] [place] [address] Radha Sweeney [address] [place] [address] 08/27/2025 3:00 PM EDT Office Visit [facility] [address] [place] [address] Melita Pacheco, OD [address] [place] [address] Health Maintenance Due Date Last Done Comments Disability Screening 1991 HPV Vaccines (1 - 3-dose series) 2006 Hepatitis C Screening 2009 Dental X-Ray: Full Mouth 07/09/2024 07/08/2021, 10/13 COVID-19 Vaccine ( season) 2025 02/14/2022, 07/14/2020, 06/23/2020 Dental Oral Exam 05/24/2025 11/20/2024, 07/2024, 06/20/2023, Additional history exists Dental Prophylaxis 05/24/2025 11/20/2024, 0 05/17/2024, 04/26/2023, Additional history exists Cervical Cancer Screening 10/23/2025 HPV/Cotest 10/23/2025 10/23/2020 Pap Smear 10/23/2025 10/23/2020 Family Planning (PISQ) 11/28/2025 11/28/2024 Dental X-Ray: Bitewings 02/21/2026 02/21/20 25, 05/17/2024, 04/26/2023, Additional history exists SDOH Screening 04/21/2026 04/21/2025 Alcohol/Substance Use Screening 04/30/2026 04/30/2025 Depression Screening 04/30/2026 04/30/2025, 04/30/20 Tobacco Screening 04/30/2026 04/30/2025 DTaP/Tdap/Td Vaccines (3 - Td or Tdap) 08/28/2028 08/28/2018, 01/03/2009 Lipid Panel 04/04/2029 04/04/2024, 03/15, 02/14/2022, Additional history exists Zoster Vaccines (1 of 2) 2041 RSV Patients and Patients Aged 60 years or older (1 - 1-dose 75+ series) 2066 Hepatitis B Vaccines Completed 07/01/2022, 04/15/2022, 03/11/2022, Additional history exists Pneumococcal Vaccine: Pediatrics (0 to 5 Years) and At-Risk Patients (6 to 49) Years Completed 05/03/2023 HIV Screening Completed 04/04/2024, 03/15, 02/14/2022 Influenza Vaccine Completed 01/31/2025, , 03/08/2023, Additional history exists HIB Vaccines Aged Out No longer eligi ble based on patient's age to complete this topic Hepatitis A Vaccines Aged Out No long er eligible based on patient's age to complete this topic IPV Vaccines Aged Out No longer eligi ble based on patient's age to complete this topic Meningococcal B Vaccine Aged Out No l onger eligible based on patient's age to complete [...] Procedure Name Priority Date/Time Associated Diagnosis Comments 30 ENDO - CLEAN AND SHAPE Routine 04/21/2025 3:30 PM EST CASE PRESENTATION, DETAILED AND EXTENSIVE TREATMENT PLANNING Routine 04/21/2025 3:30 PM EST CASE PRESENTATION, DETAILED AND EXTENSIVE TREATMENT PLANNING Routine 04/03/2025 2:00 PM EST Full coverage crown needed for root canal-treated tooth INTRAORAL - PERIAPICAL FIRST RADIOGRAPHIC IMAGE Routine 04/03/2025 2:00 PM EST Full coverage crown needed for root canal-treated tooth 19 CROWN - PORCELAIN/CERAMIC Routine 04/03/2025 2:00 PM EST Full coverage crown needed for root canal-treated tooth CASE PRESENTATION, DETAILED AND EXTENSIVE TREATMENT PLANNING Routine 03/17/2025 2:30 PM EST INTRAORAL - PERIAPICAL FIRST RADIOGRAPHIC IMAGE Routine 03/17/2025 2:30 PM EST 19 CROWN PREP Routine 03/17/2025 2:30 PM EST 19 PREFABRICATED POST AND CORE IN ADDITION TO CROWN Routine 03/17/2025 2:30 PM EST OCT, OPTIC NERVE - OU - BOTH EYES Routine 02/26/2025 3:00 PM EDT Papilledema associated with increased intracranial pressure CASE PRESENTATION, DETAILED AND EXTENSIVE TREATMENT PLANNING Routine 02/20/2025 11:00 AM EDT BITEWING - SINGLE RADIOGRAPHIC IMAGE Routine 02/20/2025 11:00 AM EDT INTRAORAL - PERIAPICAL FIRST RADIOGRAPHIC IMAGE Routine 02/20/2025 11:00 AM EDT LIMITED ORAL EVALUATION - PROBLEM FOCUSED Routine 02/20/2025 11:00 AM EDT CASE PRESENTATION, DETAILED AND EXTENSIVE TREATMENT PLANNING Routine 02/18/2025 11:30 AM EDT INTRAORAL - PERIAPICAL FIRST RADIOGRAPHIC IMAGE Routine 02/18/2025 11:30 AM EDT LIMITED ORAL EVALUATION - PROBLEM FOCUSED Routine 02/18/2025 11:30 AM EDT PROPHYLAXIS - ADULT Routine 11/20/2024 3 :00 PM EDT PERIODIC ORAL EVALUATION - ESTABLISHED PATIENT Routine 11/20/2024 3:00 PM EDT HIV 1/2 ANTIGEN/ANTIBODY, FOURTH GENERATION W/RFL Routine 04/04/2024 9:45 AM EST Encounter for preventive health examination LIPID PANEL WITH REFLEX TO DIRECT LDL Routine 04/04/2024 9:45 AM EST Class 2 severe obesity due to excess calories with serious comorbidity and body mass index (BMI) of 37.0 to 37.9 in adult (CMS/[facility]) INTRAORAL - COMPLETE SERIES OF RADIOGRAPHIC IMAGES Routine 07/08/2021 12:00 AM EST HPV MRNA E6/E7 Routine 10/23/2020 12:00 AM EDT THINPREP PAP Routine 10/23/2020 12:00 AM EDT from Last 3 Months or Most Recently Relevant to Health Maintenance Results * OCT, Optic Nerve - OU - Both Eyes (02/26/2025 3:00 PM EDT) Narrative Melita Pacheco, OD - 03/14/2025 11:48 AM EDT Images from the original result were not included. 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 Will monitor here in 6 months with a visual field. Will send today's notes to her neurologist as well. us Melita Pacheco OD OPHTH TOMOGRAPHY Final Result * (ABNORMAL) Lipid Panel with Reflex to Direct LDL (04/04/2024 9:45 AM EST) Triglycerides 75 <150 mg/dL [facility] Comment:Desirable Triglyceri de: less than 150 mg/dLBorderline High Triglyceride 150-199 mg/dLHigh Triglyceride: 200-499 mg/dLVery High Triglyceride: greater than or equal to 5OO mg/dL Cholesterol 193 <200 mg/dL [facility] Comment:Desirable Cholestero l: less than 200 mg/dLBorderline High Cholesterol: 200-239 mg/dLHigh Cholesterol: greater than 239 mg/dL LDL Cholesterol Calculated 112(H) <100 mg/dL [facility] Comment:Desirable LDL: less than 100 mg/dLNear Optimal/Above Optimal LDL: 110- 129 mg/dLBorderline High LDL: 130-159 mg/dLHigh LDL: 160-189 mg/dLVery High LDL: greater than or equal to 190 mg/dL HDL Cholesterol 66 >40 mg/dL [facility] Comment:Desirable HDL: great er than 40 mg/dL Note: This HDL assay may give artificially low results in patients with liver disease. Blood 04/04/2024 9:45 AM EST 04/04/2024 11:09 AM EST us Natalia Williamson MD LAB BLOOD ORDERABLES Fin al Result [facility] [address] [place] [address] [phone] * HIV-1/2 Antigen and Antibodies, Fourth Generation, with Reflexes (04/04/2024 9:45 AM EST) HIV AB/AG Nonreactive Nonreactive [facility] Comment:HIV-1 p24 Ag and/or HIV-1/HIV-2 Ab not detected.A test result that is nonreactive does not exclude thepossibility of exposure to or infection with HIV-1 and/orHIV-2. Nonreactive results in this assay for individualswith prior exposure to HIV-1 and/or HIV-2 may be due toantigen and antibody levels that are below the limit ofdetection of this assay.The [id number] HIV Ag/Ab Combo assay result andsupplemental assay results should be interpreted inconjunction with the patient's clinical presentation,history and other laboratory results. If the results areinconsistent with clinical evidence, additional testing issuggested to confirm the result. Blood Venous blood specimen / Unknown 04/04/2024 9:45 AM EST 04/04/2024 11:09 AM EST us Natalia Williamson MD LAB BLOOD ORDERABLES Fin al Result [facility] [address] [place] [phone] * THINPREP PAP (10/23/2020 12:00 AM EDT) Clinical Information: None given [facility] COMMENT SEE COMMENT [facility] Comment: EXPLANATORY NOTE: The Pap is a screening test for cervical cancer. It is not a diagnostic test and is subject to false negative and false positive results. It is most reliable when a satisfactory sample, regularly obtained, is submitted with relevant clinical findings and history, and when the Pap result is evaluated along with historic and current clinical information. 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 [facility] LMP: NONE GIVEN [facility] Prev. BX: NONE GIVEN [facility] Prev. PAP: NONE GIVEN [facility] SOURCE: None given [facility] Statement Of Adequacy: SEE COMMENT [facility] Comment: Satisfactory for evaluation. Endocervical/transformation zone component present. Age and/or menstrual status not provided 10/23/2020 Natalia Williamson MD LAB PATHOLOGY ORDERABLES Final Result Performing Organization Address [facility] Co de Phone Number [facility] [address] * HPV mRNA E6/E7 (10/23/2020 12:00 AM EDT) HPV nRNA E6/E7 Not Detected Not Detected [facility] Comment: Methodology: Commercial Assistant-Mediated Amplification This assay detects E6/E7 viral messenger RNA (mRNA) from 14 high-risk HPV types (16,18,31,33,35,39,45,51,52,56,58,59,66,68). The analytical performance characteristics of this assay have been determined by [employer]. The modifications have not been cleared or approved by the FDA. This assay has been validated pursuant to the CLIA regulations and is used for clinical purposes. For additional information, please refer to http://education.Manifest/faq/MQE023h2 (This link if provided for information/ educational purposes only.) 10/23/2020 Natalia Williamson MD LAB BLOOD ORDERABLES Fin al Result Performing Organization Address [facility] de Phone Number [facility] [address] from Last 3 Months or Most Recently Relevant to Health Maintenance Insurance [facility] 2 DENTAL - HSN PARTIAL (MEDICAID) Care Teams Community Health Planning Director Relationship Specialty Start Date End Date Natalia Williamson MD [address] [place] [phone] PCP - General Internal Medicine 02/27/23
--- OUTSIDE RECORDS SUMMARY | 2025-04-30 15:06 | XMS_ITS | Encounter Summary ---
Author Organization [email or web address] Address [address] [facility] [address] [place] [address] Care Team Providers Care Learning Center Instructor Name Role Phone Barb Tubbs Primary Care Provider [phone] Barb Tubbs Primary Care Provider [phone] Natalia Williamson MD Primary Care Provider + Encounter Details Date Type Department Care Team (Latest Contact Info) Description 07/08/2021 Abstract [facility] CONVERSIONS Dental, Provider, DDS Social [...] Description 05/05/2025 8:00 AM EST Office Visit [facility] [address] [place] [address] Anuel Jain DDS [address] [place] [address] 05/30/2025 3:00 PM EST Office Visit [facility] [address] [place] [address] Radha Sweeney [address] [place] [address] 08/27/2025 3:00 PM EDT Office Visit [facility] [address] [place] [address] Melita Pacheco, OD [address] [place] [address] documented as of this encounter Visit Diagnoses Not on filedocumented in this encounter Care Teams Learning Center Instructor Relationship Specialty Start Date End Date Barb Tubbs FNP [address] [place] [address] PCP - General Family Medicine 07/15/22 07/17/22 Barb Tubbs FNP [address] [place] [address] PCP - General Family Medicine 07/18/22 02/26/23 Natalia Williamson MD [address] [place] [address] PCP - General Internal Medicine 02/27/23 documented as of this encounter
--- OUTSIDE RECORDS SUMMARY | 2025-04-30 15:06 | XMS_ITS | Encounter Summary ---
Author Organization [employer] Address [address] [facility] [address] [place] [address] Care Team Providers Care [place] Instructor Name Role Phone Natalia Williamson MD Primary Care Provider + Reason for Visit * Reason Onset Date Comments Med Refill 08/02/2024 Encounter Details Date Type Department Care Team ([facility] st Contact Info) Description 08/02/2024 Refill [facility] [address] [place], [place] [phone] Natalia Williamson MD [address] [place], [place] [phone] Social History Tobacco Use Types Packs/Day Years [...] Description 05/05/2025 8:00 AM EST Office Visit [facility] [address] [place] [address] KandruAnuel, DDS [address] [place] [address] 05/30/2025 3:00 PM EST Office Visit [facility] [address] [place] [address] Patel, Radha [address] [place] [address] 08/27/2025 3:00 PM EDT Office Visit [facility] [address] [place] [address] Junior, Melita, OD [address] [place] [address] documented as of this encounter Visit Diagnoses Not on filedocumented in this encounter Care Teams [place] Instructor Relationship Specialty Start Date End Date Natalia Williamson MD [address] [place] [address] PCP - General Internal Medicine 02/27/23 documented as of this encounter
--- OUTSIDE RECORDS SUMMARY | 2025-04-30 15:06 | XMS_ITS | Encounter Summary ---
Author Organization [employer] Address [address] [place] [address] Care Team Providers Care Machine Farmworker Name Role Phone Natalia Williamson MD Primary Care Provider + Reason for Visit * Reason Onset Date Comments Med Refill 08/15/2024 Encounter Details Date Type Department Care Team ([facility] st Contact Info) Description 08/15/2024 Refill [facility] MEDICINE [address] [place], [place] [phone] Natalia Williamson MD 230 [place], [place] [phone] Social History Tobacco Use Types Packs/Day Years [...] Description 05/05/2025 8:00 AM EST Office Visit [facility] CHC ADULT DENTAL [address] [place] [address] KandruAnuel, DDS [address] [place] [address] 05/30/2025 3:00 PM EST Office Visit [facility] ADULT DENTAL [address] [place] [address] Patel, Radha 230 [place] [address] 08/27/2025 3:00 PM EDT Office Visit [facility] OPTOMETRY [address] [place] [address] Junior, Melita, OD 230 [place] [address] documented as of this encounter Visit Diagnoses Not on filedocumented in this encounter Care Teams Machine Farmworker Relationship Specialty Start Date End Date Natalia Williamson MD [address] [place] [address] PCP - General Internal Medicine 02/27/23 documented as of this encounter
--- OUTSIDE RECORDS SUMMARY | 2025-04-30 15:06 | XMS_ITS | Encounter Summary ---
Author Organization [employer] Address [address] 7[address] [place] [address] Care Team Providers Care Teacher Private Name Role Phone Natalia Williamson MD Primary Care Provider + Reason for Visit * Reason Onset Date Comments Med Refill 05/19/2024 Encounter Details Date Type Department Care Team ([facility] st Contact Info) Description 05/19/2024 Refill [facility] MEDICINE 230 [place], [place] [phone] Natalia Williamson MD 230 [place], [place] [phone] Back muscle spasm Social History Tobacco Use [...] 8:00 AM EST Office Visit [facility] CHC ADULT DENTAL 505 [place] [address] KandruAnuel, DDS 505 [place] [address] 05/30/2025 3:00 PM EST Office Visit [facility] ADULT DENTAL [address] [place] [address] Patel, Radha [address] [place] [address] 08/27/2025 3:00 PM EDT Office Visit [facility] OPTOMETRY [address] [place] [address] Junior, Melita, OD 230 [place] [address] documented as of this encounter Visit Diagnoses Diagnosis Back muscle spasm Other symptoms referable to back documented in this encounter Care Teams Teacher Private Relationship Specialty Start Date End Date Natalia Williamson MD [address] [place] [address] PCP - General Internal Medicine 02/27/23 documented as of this encounter
--- OUTSIDE RECORDS SUMMARY | 2025-04-30 15:06 | XMS_ITS | Encounter Summary ---
Author Organization [email or web address] Address [address] 7t [place] [address] Care Team Providers Care Senior Maintenance Mechanic Name Role Phone Natalia Williamson MD Primary Care Provider + Reason for Visit * Reason Comments Med Refill Encounter Details Date Type Department Care Team ([facility] st Contact Info) Description 07/24/2023 Refill [facility] MEDICINE 230 [place], [place] [phone] Natalia Williamson MD 230 [place], [place] [phone] Mild intermittent asthma without complication Social History [...] Description 05/05/2025 8:00 AM EST Office Visit [facility] ADULT DENTAL [address] [place] [address] JuanjodruAnuel, DDS [address] [place] [address] 05/30/2025 3:00 PM EST Office Visit [facility] ADULT DENTAL 230 [place] [address] Patel, Radha 230 [place] [address] 08/27/2025 3:00 PM EDT Office Visit [facility] OPTOMETRY [address] [place] [address] Junior, Melita, OD 230 [place] [address] documented as of this encounter Visit Diagnoses Diagnosis Mild intermittent asthma without complication documented in this encounter Care Teams Senior Maintenance Mechanic Relationship Specialty Start Date End Date Natalia Williamson MD 230 [place] [address] PCP - General Internal Medicine 02/27/23 documented as of this encounter
--- OUTSIDE RECORDS SUMMARY | 2025-04-30 15:06 | XMS_ITS | Encounter Summary ---
Author Organization [employer] Address [address] 7t [place] [address] Care Team Providers Care Manager Behavior Name Role Phone Natalia Williamson MD Primary Care Provider + Reason for Visit * Reason Comments Med Refill Encounter Details Date Type Department Care Team ([facility] st Contact Info) Description 07/31/2024 Refill [facility] MEDICINE 230 [place], [place] [phone] Natalia Willaimson MD 230 [place], [place] [phone] Back muscle spasm Social History Tobacco Use Types Packs/Day Years Used Date Smoking Tobacco: Never Passive Smoke Exposure: Never Smokeless Tobacco: Never Alcohol Use Standard Drinks/Week Comments Never 0 (1 standard drink = 0.6 oz pur e alcohol) Housing Stability Answer Date Recorded What is your housing situation today? I have romy aldo 03/22/[address] you li [...] Description 05/05/2025 8:00 AM EST Office Visit [facility] CHC ADULT DENTAL 505 [place] [address] Anuel Jain, DDS 505 [place] [address] 05/30/2025 3:00 PM EST Office Visit [facility] ADULT DENTAL 230 [place] [address] Patel, Radha 230 [place] [address] 08/27/2025 3:00 PM EDT Office Visit [facility] OPTOMETRY [address] [place] [address] Junior, Melita, OD 230 [place] [address] documented as of this encounter Visit Diagnoses Diagnosis Back muscle spasm Other symptoms referable to back documented in this encounter Care Teams Manager Behavior Relationship Specialty Start Date End Date Natalia Williamson MD 230 [place] [address] PCP - General Internal Medicine 02/27/23 documented as of this encounter
--- OUTSIDE RECORDS SUMMARY | 2025-04-30 15:06 | XMS_ITS | Encounter Summary ---
Author Organization [employer] Address [address] [place] [address] Care Team Providers Care Expedition Supervisor Name Role Phone Natalia Williamson MD Primary Care Provider + Reason for Visit * Reason Onset Date Comments Med Refill 05/19/2024 Encounter Details Date Type Department Care Team ([facility] st Contact Info) Description 05/19/2024 Refill [facility] MEDICINE 230 [place], [place] [phone] Natalia Williamson MD 230 [place], [place] [phone] Social History Tobacco Use Types Packs/Day Years [...] 8:00 AM EST Office Visit [facility] CHC ADULT DENTAL 505 [place] [address] KandruAnuel, DDS 505 [place] [address] 05/30/2025 3:00 PM EST Office Visit [facility] ADULT DENTAL [address] [place] [address] Patel, Radha [address] [place] [address] 08/27/2025 3:00 PM EDT Office Visit [facility] OPTOMETRY [address] [place] [address] Junior, Melita, OD 230 [place] [address] documented as of this encounter Visit Diagnoses Not on filedocumented in this encounter Care Teams Expedition Supervisor Relationship Specialty Start Date End Date Natalia Williamson MD [address] [place] [address] PCP - General Internal Medicine 02/27/23 documented as of this encounter
--- OUTSIDE RECORDS SUMMARY | 2025-04-30 15:06 | XMS_ITS | Encounter Summary ---
Author Organization [employer] Address [address] [facility] 7t [place] [address] Care Team Providers Care Pourer Name Role Phone Barb Tubbs Primary Care Provider [phone] Barb Tubbs Primary Care Provider [phone] Natalia Williamson MD Primary Care Provider + Encounter Details Date Type Department Care Team (Latest Contact Info) Description 05/27/2020 Abstract [facility] CONVERSIONS Dental, Provider, DDS Social [...] Description 05/05/2025 8:00 AM EST Office Visit [facility] ADULT DENTAL 505 [place] [address] Anuel Jain DDS 505 [place] [address] 05/30/2025 3:00 PM EST Office Visit [facility] ADULT DENTAL 230 [place] [address] Radha Sweeney 230 [place] [address] 08/27/2025 3:00 PM EDT Office Visit [facility] OPTOMETRY [address] [place] [address] Melita Pacheco, OD 230 [place] [address] documented as of this encounter Visit Diagnoses Not on filedocumented in this encounter Care Teams Pourer Relationship Specialty Start Date End Date Barb Tubbs FNP 230 [place] [address] PCP - General Family Medicine 07/15/22 07/17/22 Barb Tubbs FNP 230 [place] [address] PCP - General Family Medicine 07/18/22 02/26/23 Natalia Williamson MD 230 [place] [address] PCP - General Internal Medicine 02/27/23 documented as of this encounter
--- OUTSIDE RECORDS SUMMARY | 2025-04-30 15:06 | XMS_ITS | Encounter Summary ---
Author Organization [employer] Address [address] [place] [address] Care Team Providers Care Blackjack Dealer Name Role Phone Natalia Williamson MD Primary Care Provider + Reason for Visit * Reason Comments Med Refill Encounter Details Date Type Department Care Team ([facility] st Contact Info) Description 07/27/2023 Refill [facility] MEDICINE [address] [place], [place] [phone] Natalia Williamson MD 230 [place], [place] [phone] Mild intermittent asthma without complication Social History [...] Description 05/05/2025 8:00 AM EST Office Visit [facility] ADULT DENTAL [address] [place] [address] JuanjodruAnuel, DDS [address] [place] [address] 05/30/2025 3:00 PM EST Office Visit [facility] ADULT DENTAL [address] [place] [address] Patel, Radha [address] [place] [address] 08/27/2025 3:00 PM EDT Office Visit [facility] OPTOMETRY [address] [place] [address] Junior, Melita, OD 230 [place] [address] documented as of this encounter Visit Diagnoses Diagnosis Mild intermittent asthma without complication documented in this encounter Care Teams Blackjack Dealer Relationship Specialty Start Date End Date Natalia Williamson MD [address] [place] [address] PCP - General Internal Medicine 02/27/23 documented as of this encounter
--- OUTSIDE RECORDS SUMMARY | 2025-04-30 15:06 | XMS_ITS | Encounter Summary ---
Author Organization [employer] Address [address] [place] [address] Care Team Providers Care Auto Garage Attendant Name Role Phone Natalia Williamson MD Primary Care Provider + Encounter Details Date Type Department Care Team (Latest Contact Info) Description 04/30/2025 Travel Social History Tobacco Use Types Packs/Day [...] AM EDT documented as of this encounter Functional Status * Over the past 2 weeks, how often have you been bothered by any of the following problems? Question Answer Date of Assessment Author Patient Health Questionnaire -2 Score 0 04/30/2025 12:19 PM Jackelin Ramos MA * Little interest or pleasure in doing things Answer Date of Assessment Author Not at all 04/30/2025 12:19 PM Jackelin Ramos MA * Feeling down, depressed, or hopeless Answer Date of Assessment Author Not at all 04/30/2025 12:19 PM Jackelin Ramos MA * Trouble falling or staying asleep, [...] Ramos [place] documented as of this encounter Plan of Treatment Upcoming Encounters Date Type Department Care Team (Late st Contact Info) Description 05/05/2025 8:00 AM EST Office Visit [facility] CHC ADULT DENTAL [address] [place] [address] Anuel Jain, DDS [address] [place] [address] 05/30/2025 3:00 PM EST Office Visit [facility] ADULT DENTAL [address] [place] [address] Patel, Radha 230 [place] [address] 08/27/2025 3:00 PM EDT Office Visit [facility] OPTOMETRY [address] [place] [address] Melita Pacheco OD 230 [place] [address] documented as of this encounter Visit Diagnoses Not on filedocumented in this encounter Additional Health Concerns Assessment Noted Time PHQ-9 Depression Total Score: 0 04/30/20 25 12:19 PM EST documented as of this encounter Care Teams Auto Garage Attendant Relationship Specialty Start Date End Date Natalia Williamson MD 230 [place] [address] PCP - General Internal Medicine 02/27/23 documented as of this encounter
--- OUTSIDE RECORDS SUMMARY | 2025-04-30 15:06 | XMS_ITS | Encounter Summary ---
Author Organization [employer] Address [address] [place] [address] Care Team Providers Care Blanking Machine Operator Name Role Phone Natalia Williamson MD Primary Care Provider + Reason for Visit * Reason Onset Date Comments Dr. Hinds follow up dental pain RCT Susy 11/2024 Encounter Details Date Type Department Care Team ([facility] st Contact Info) Description 02/18/2025 Telephone [facility] ADULT DENTAL [address] [place] [address] Amy Mcmillan, HEMAL [address] [place] [address] Dr[facility] Social History Tobacco Use Types Packs/Day Years [...] encounter Miscellaneous Notes * Telephone Encounter - Lisbeth Cruz - 02/18/2025 8:36 AM EDT Message for Dr. Hinds EMERGENCY Lower left side had rct done on 01/[address] Jain[address] [facility] front office administrator indicated she can go to [facility] for emergency seeing that she has appt on 02/20 for crown to make sure she is good to go and get treated prior to. documented in this encounter Plan of Treatment Upcoming Encounters Date Type Department Care Team (Late st Contact Info) Description 05/05/2025 8:00 AM EST Office Visit [facility] ADULT DENTAL [address] [place] [address] Anuel Jain DDS [address] [place] [address] 05/30/2025 3:00 PM EST Office Visit [facility] ADULT DENTAL [address] [place] [address] Patel, Radha [address] [place] [address] 08/27/2025 3:00 PM EDT Office Visit [facility] OPTOMETRY [address] [place] [address] Junior, Melita, OD 230 [place] [address] documented as of this encounter Visit Diagnoses Not on filedocumented in this encounter Care Teams Blanking Machine Operator Relationship Specialty Start Date End Date Natalia Williamson MD [address] [place] [address] PCP - General Internal Medicine 02/27/23 documented as of this encounter
[2025-05-01 04:27] LABS: HBS Num1 24.47 mIU/mL (0-7.99); HBc Num1 0.05 S/CO (0.00-0.79); HIV Num 1 0.08 S/CO (0.00-0.99); Hepatitis A Antibody IgM 0.16 Index (0-0.79); ~HepC Num1 0.07 S/CO (0.00-0.79); ~Hepatitis A Antibody IgM Nonreactive (Nonreactive); ~Hepatitis B Surface Antibody REACTIVE (Nonreactive); ~Hepatitis C Antibody Nonreactive (Nonreactive)
[2025-05-01 04:59] LABS: Syphilis Screen Nonreactive (Nonreactive)
[2025-05-01 13:17] LABS: HBsAGNum1 0.25 S/CO (0.00-0.99); Hepatitis B Surface Antigen Negative (Negative)
== END 2025-04-30 11:23 | disposition home or self-care (01) ==
LOC: HO.HHCL 11:22
PROVIDERS: PCP Internal Medicine; Visit Provider Internal Medicine
DX: Z00.00 Encounter for general adult medical examination without abnormal findings (principal); J45.20 Mild intermittent asthma, uncomplicated; Z11.3 Encounter for screening for infections with a predominantly sexual mode of transmission; Z11.1 Encounter for screening for respiratory tuberculosis; Z11.4 Encounter for screening for human immunodeficiency virus [HIV]
CPT/HCPCS: 36415; 82306; 86481; 86704; 86706; 86709; 86780; 86803; 87340; 87389